=== PATIENT | male | born 1985 | race African-American/Black ===

== ENCOUNTER 2016-09-29 14:01 | Emergency (ER) | payer SELFPAY ==
[~2016-09-29] VITALS: Ht 177.8 cm; Wt 78.6 kg
[~2016-09-29 14:01] MED LIST: ADAL1INJ SQ; CHLO.12%30 SSP; CLIN1CAP6 PO; IBUP800T23 PO
[2016-09-29 14:03] VITALS: BP 113/77; PULSE 68; RESP 17; TEMP 98.5; O2SAT 99
--- NOTE | 2016-09-29 14:24 | PD ---
HPI Chief Complaint: Pain: Acute or Chronic Time Seen by Provider: 14:00 Travel History International Travel<30 days: No Contact w/Intl Traveler<30days: No Traveled to known affect area: No History of Present Illness HPI 31-year-old male with chief complaint of nontraumatic left wrist pain. Symptom onset 1 day. Symptom severity mild. No alleviating factors Patient reports mild pain with range of motion and some mild paresthesias in the first and second digit. PFSH Past Medical History Medical History: Denies Significant Hx Hx Anticoagulant Therapy: No Autoimmune Disease: No Blood Disorders: No Cancer: No Cardiovascular Problems: No Chemotherapy: No Cerebrovascular Accident: No Diabetes: No Diminished Hearing: No Endocrine: No Gastrointestinal Disorders: Yes (STATES HISTORY OF CROHN'S) GERD: No Genitourinary: No Headaches: Yes Hepatitis: No Hiatal Hernia: No Immune Disorder: No Musculoskeletal: No Neurologic: Yes Psychiatric: No Reproductive: No Respiratory: No Migraines: Yes Radiation Therapy: No Seizures: No Sickle Cell Disease: No Ulcer: No Past Surgical History Abdominal Surgery: Yes (PARTIAL COLON AND PARTIAL SMALL BOWEL RESECTION AND COLONOSCOPY 11/09/06) AICD: No Appendectomy: No Arteriovenous Shunt: No Cardiac Surgery: No Cholecystectomy: No Ear Surgery: No Endocrine Surgery: No Eye Surgery: No Genitourinary Surgery: Yes (COLONOSCOPY, POLYP/HEMORRHOID REMOVAL 2006 +01/18 years ago colonoscopy) Gynecologic Surgery: No Insulin Pump: No Joint Replacement: No Oral Surgery: No Pacemaker: No Thoracic Surgery: No Other Surgery: Yes Social History Alcohol Use: No Tobacco Use: No Substance Use: No Allergies-Medications (Allergen,Severity, Reaction): Coded Allergies: No Known Allergies (Verified , 09/29/16) Reported Meds & Prescriptions Reported Meds & Active Scripts Active Ibuprofen 800 Mg Tab 800 Mg PO TID PRN Peridex Oral Rinse (Chlorhexidine Gluconate) 0.12 % Rita 15 Ml SSP BID 7 Days Clindamycin Hcl (Clindamycin HCl) 300 Mg Cap 300 Mg PO Q6HR 10 Days Reported Humira (Adalimumab) 10 Mg/0.2 Ml Inj 1 Injection SQ MONTHLY Review of Systems Except as stated in HPI: all other systems reviewed are Neg General / Constitutional: No: Fever Eyes: No: Visual changes HENT: No: Headaches Cardiovascular: No: Chest Pain or Discomfort Respiratory: No: Shortness of Breath Gastrointestinal: No: Abdominal Pain Genitourinary: No: Dysuria Skin: No Rash Neurologic: No: Weakness Physical Exam Narrative GENERAL: Well-nourished, well-developed patient. SKIN: Focused skin assessment warm/dry. HEAD: Normocephalic. EYES: No scleral icterus. No injection or drainage. NECK: Supple, trachea midline. No JVD or lymphadenopathy. CARDIOVASCULAR: Regular rate and rhythm without murmurs, gallops, or rubs. RESPIRATORY: Breath sounds equal bilaterally. No accessory muscle use. MUSCULOSKELETAL: No cyanosis, or edema. Left wrist: Patient reports pain in the region of the distal radius and thumb. No bony point tenderness. No deformity. Positive Chuck's. 2+ distal pulses. Data Data Last Documented VS Vital Signs Date Time Temp Pulse Resp B/P Pulse Ox O2 Delivery O2 Flow Rate FiO2 09/29/16 14:03 98.5 68 17 113/77 99 Room Air Orders Support Splint (09/29/16 14:25) Cockup Hand Splint (09/29/16 ) MDM Medical Decision Making Medical Screen Exam Complete: Yes Emergency Medical Condition: Yes Differential Diagnosis Carpal tunnel, tendinitis, strain Narrative Course 31-year-old male with chief complaint of nontraumatic left wrist pain. Patient reports mild pain with range of motion and some mild paresthesias in the first and second digit. Physical exam is reassuring and consistent with carpal tunnel. Patient will be given a cock-up splint instructed to take over-the- counter Motrin ice and elevate the extremity and follow up with his primary care. Patient verbalizes understanding and agrees to plan. Diagnosis Primary Impression: Carpal tunnel syndrome of left wrist Referrals: Primary Care Physician Departure Forms: Tests/Procedures, Work Release Enter return to work date: Oct 01, 2016 Additional Instructions: Use a splint as instructed for one week. Take [id number] Motrin [id number] milligrams by mouth every 6-8 hours as needed for pain. Follow-up they're primary care doctor for recheck. Disposition: 01 DISCHARGE HOME Condition: Stable Sunita Beaver Jennifer OLSON Sep 29, 2016 14:24
== END 2016-09-29 15:09 | disposition home or self-care (01) ==
LOC: NEPK 14:01
DX: G56.02 Carpal tunnel syndrome, left upper limb (principal)
CPT/HCPCS: 99282; L3908

== ENCOUNTER 2016-11-15 21:42 | Inpatient (IN) | payer SELFPAY ==
[~2016-11-15] VITALS: Ht 177.8 cm; Wt 78.5 kg
[2016-11-15] MEDS ORDERED: IOHEXOL 350 MG/ML 10 ML VIAL (for RAD DIAG) IVCONTRAST ONE (21:43)
[2016-11-15 21:44] VITALS: BP 139/68; PULSE 98; RESP 16; TEMP 99.9; O2SAT 96
[2016-11-16] VITALS (9 sets, daily range): BP systolic 95–109; BP diastolic 52–67; PULSE 59–82; RESP 14–18; TEMP 97.8–98.1; O2SAT 97–100
[2016-11-16] MEDS ORDERED: SODIUM CHLOR 0.9% 1000 ML INJ 1,000 ML IV SCH (00:02)
[2016-11-16] MEDS ORDERED: MORPHINE SULFATE 4 MG/ML INJ IV PUSH ONE ×2 (00:15→02:15)
[2016-11-16] MEDS ORDERED: ONDANSETRON HCL 4 MG/2 ML VIAL IVP ONE (00:15)
[2016-11-16] MEDS ORDERED: SODIUM CHLORIDE 0.9% FLUSH 10 ML FLUSH IV FLUSH PRN (00:15)
--- NOTE | 2016-11-16 00:17 | PD ---
HPI Chief Complaint: Abdominal Pain Time Seen by Provider: 23:30 Travel History International Travel<30 days: No Contact w/Intl Traveler<30days: No Traveled to known affect area: No History of Present Illness HPI 31yo M with PMH of crohns disease here with periumbilical abdominal pain since 10am today. Pain is constant, associated with nausea, nonbloody vomiting and nonbloody diarrhea. States that he also started having generalized headache after vomiting and thinks it is migraine because the light makes it worst. Pt has been feeling hot and cold all day. No documented fever. Denies any urinary complaints, testicular pain, penile discharge or rash, focal weakness or numbness, chest pain, sob. Pt has not follow up with Dr. Ryder in a while. PFSH Past Medical History Hx Anticoagulant Therapy: No Autoimmune Disease: No Blood Disorders: No Cancer: No Cardiovascular Problems: No Chemotherapy: No Cerebrovascular Accident: No Diabetes: No Diminished Hearing: No Endocrine: No Gastrointestinal Disorders: Yes (STATES HISTORY OF CROHN'S) GERD: No Genitourinary: No Headaches: Yes Hepatitis: No Hiatal Hernia: No Immune Disorder: No Musculoskeletal: No Neurologic: Yes Psychiatric: No Reproductive: No Respiratory: No Immunizations Current: No Migraines: Yes Radiation Therapy: No Seizures: No Sickle Cell Disease: No Ulcer: No Tetanus Vaccination: < 5 Years Influenza Vaccination: No Past Surgical History Abdominal Surgery: Yes (PARTIAL COLON AND PARTIAL SMALL BOWEL RESECTION AND COLONOSCOPY 11/09/06) AICD: No Appendectomy: Yes Arteriovenous Shunt: No Cardiac Surgery: No Cholecystectomy: No Ear Surgery: No Endocrine Surgery: No Eye Surgery: No Genitourinary Surgery: Yes (COLONOSCOPY, POLYP/HEMORRHOID REMOVAL 2006 +01/18 years ago colonoscopy) Gynecologic Surgery: No Insulin Pump: No Joint Replacement: No Neurologic Surgery: No Oral Surgery: No Pacemaker: No Thoracic Surgery: No Other Surgery: Yes Social History Alcohol Use: No Tobacco Use: No Substance Use: No Allergies-Medications (Allergen,Severity, Reaction): Coded Allergies: No Known Allergies (Verified , 09/29/16) Reported Meds & Prescriptions Reported Meds & Active Scripts Active No Active Prescriptions or Reported Medications Review of Systems Except as stated in HPI: all other systems reviewed are Neg Physical Exam Narrative GENERAL: 31yo M in mild distress. SKIN: Focused skin assessment warm/dry. HEAD: Atraumatic. Normocephalic. EYES: Pupils equal and round at 3mm bilaterally. No scleral icterus. No injection or drainage. ENT: No nasal bleeding or discharge. Mucous membranes pink and moist. NECK: Trachea midline. No JVD. No nuchal rigidity. CARDIOVASCULAR: Regular rate and rhythm. No murmur appreciated. RESPIRATORY: No accessory muscle use. Clear to auscultation. Breath sounds equal bilaterally. GASTROINTESTINAL: Abdomen soft, non-tender, nondistended. No rebound tenderness or guarding. MUSCULOSKELETAL: No obvious deformities. No clubbing. No cyanosis. No edema. NEUROLOGICAL: Awake and alert. No obvious cranial nerve deficits. Motor grossly within normal limits. Normal speech. PSYCHIATRIC: Appropriate mood and affect; insight and judgment normal. Data Data Last Documented VS Vital Signs Date Time Temp Pulse Resp B/P (MAP) Pulse Ox O2 Delivery O2 Flow Rate FiO2 11/16/16 02:18 98 11/16/16 00:15 82 18 Room Air 11/15/16 21:44 99.9 Orders Orders Complete Blood Count With Diff (11/16/16 00:02) Comprehensive Metabolic Panel (11/16/16 00:02) Lipase (11/16/16 00:02) Prothrombin Time / Inr (Pt) (11/16/16 00:02) Act Partial Throm Time (Ptt) (11/16/16 00:02) Urinalysis - C+S If Indicated (11/16/16 00:02) Ct Abd/Pel W Iv Contrast(Rout) (11/16/16 00:02) Iv Access Insert/Monitor (11/16/16 00:02) Ecg Monitoring (11/16/16 00:02) Oximetry (11/16/16 00:02) Morphine Inj (Morphine Inj) (11/16/16 00:15) Ondansetron Inj (Zofran Inj) (11/16/16 00:15) Sodium Chlor 0.9% 1000 Ml Inj (Ns 1000 M (11/16/16 00:02) Sodium Chloride 0.9% Flush (Ns Flush) (11/16/16 00:15) Potassium Chloride (Kcl) (11/16/16 01:30) Iohexol 350 Inj (Omnipaque 350 Inj) (11/15/16 21:43) Morphine Inj (Morphine Inj) (11/16/16 02:15) Metoclopramide Inj (Reglan Inj) (11/16/16 02:15) Admit Order (Ed Use Only) (11/16/16 02:40) Place In Observation (11/16/16 ) Vital Signs (Adult) Q4H (11/16/16 02:39) Activity Oob With Assistance (11/16/16 02:39) Carousel Operator / Telemetry .CONTINUOUS (11/16/16 02:39) Diet Regular Basic (11/16/16 Breakfast) Sodium Chlor 0.9% 1000 Ml Inj (Ns 1000 M (11/16/16 02:39) Sodium Chloride 0.9% Flush (Ns Flush) (11/16/16 02:45) Sodium Chloride 0.9% Flush (Ns Flush) (11/16/16 09:00) Basic Metabolic Panel (Bmp) (11/17/16 06:00) Complete Blood Count With Diff (11/17/16 06:00) Naloxone Inj (Narcan Inj) (11/16/16 02:45) Labs Laboratory Tests Test 11/15/16 23:53 White Blood Count 6.2 TH/MM3 Red Blood Count 4.66 MIL/MM3 Hemoglobin 13.0 GM/DL Hematocrit 39.6 % Mean Corpuscular Volume 85.0 FL Mean Corpuscular Hemoglobin 28.0 PG Mean Corpuscular Hemoglobin Concent 32.9 % Red Cell Distribution Width 13.8 % Platelet Count 286 TH/MM3 Mean Platelet Volume 7.4 FL Neutrophils (%) (Auto) 72.9 % Lymphocytes (%) (Auto) 18.0 % Monocytes (%) (Auto) 8.5 % Eosinophils (%) (Auto) 0.1 % Basophils (%) (Auto) 0.5 % Neutrophils # (Auto) 4.5 TH/MM3 Lymphocytes # (Auto) 1.1 TH/MM3 Monocytes # (Auto) 0.5 TH/MM3 Eosinophils # (Auto) 0.0 TH/MM3 Basophils # (Auto) 0.0 TH/MM3 CBC Comment DIFF FINAL Differential Comment Prothrombin Time 11.4 SEC Prothromb Time International Ratio 1.0 RATIO Activated Partial Thromboplast Time 27.9 SEC Blood Urea Nitrogen 11 MG/DL Creatinine 1.32 MG/DL Random Glucose 106 MG/DL Total Protein 8.0 GM/DL Albumin 3.5 GM/DL Calcium Level 8.9 MG/DL Alkaline Phosphatase 58 U/L Aspartate Amino Transf (AST/SGOT) 22 U/L Alanine Aminotransferase (ALT/SGPT) 24 U/L Total Bilirubin 0.5 MG/DL Sodium Level 140 MEQ/L Potassium Level 3.3 MEQ/L Chloride Level 104 MEQ/L Carbon Dioxide Level 29.3 MEQ/L Anion Gap 7 MEQ/L Estimat Glomerular Filtration Rate 77 ML/MIN Lipase 173 U/L [facility] Medical Decision Making Medical Screen Exam Complete: Yes Emergency Medical Condition: Yes Differential Diagnosis Crohns flare vs. gastroenteritis vs. viral syndrome vs. migraine headache vs. partial obstruction Narrative Course 31yo M with PMH of Crohn's disease here with periumbilical abdominal pain, vomiting and diarrhea today. Labs reviewed, no leukocytosis. K: 3.3, replaced orally. Creatinine mildly elevated at 1.32. Lipase normal. CTa/p showed moderate severity short segment Crohn's involvement of the distal ileum near the ileocolic anastomosis associated with a luminal narrowing and dilatation of small bowel up to 3.9cm in the right lower quadrant. Findings are similar to Nov 2015 although small bowel is slightly more dilated on the current exam. No free fluid or free air. Pt is having bowel movement and no vomiting so I do not think he is having a complete bowel obstruction at this time. Pt reevaluated at bedside after morphine and zofran but is still in a lot of pain and still nauseous. Ordered another dose of morphine and added reglan. Will admit for observation and GI consult. Discussed with Dr. Quintero and accepted to her service. Diagnosis Primary Impression: Crohn disease Qualified Codes: K50.019 - Crohn's disease of small intestine with unspecified complications Admitting Information Admitting Physician Requests: Observation Scripts No Active Prescriptions or Reported Meds Lisbet Pisano DO Nov 16, 2016 00:17
[2016-11-16 00:32] LABS: AUTOMATED NEUTROPHIL # 4.5 TH/MM3 (1.8-7.7); BASOPHIL % 0.5 % (0.0-2.0); EOSINOPHIL % 0.1 % (0.0-4.0); HEMATOCRIT 39.6 % (39.0-51.0); HEMO FLAGS DIFF FINAL; LYMPHOCYTE # 1.1 TH/MM3 (1.0-4.8); MEAN CORPUSCULAR HGB CONC 32.9 % (32.0-36.0); MONO % 8.5 % (0.0-8.0); NEUT % 72.9 % (16.0-70.0); PLATELET COUNT 286 TH/MM3 (150-450); RED BLOOD COUNT 4.66 MIL/MM3 (4.50-5.90); RED CELL DISTRIBUTION WIDTH 13.8 % (11.6-17.2); WHITE BLOOD COUNT 6.2 TH/MM3 (4.0-11.0)
[2016-11-16 00:38] LABS: APTT (PATIENT) 27.9 SEC (24.3-30.1); PROTHROMBIN TIME - PATIENT 11.4 SEC (9.8-11.6)
[2016-11-16 00:48] LABS: ANION GAP 7 MEQ/L (5-15); AST (GOT) 22 U/L (15-37); BICARBONATE 29.3 MEQ/L (21.0-32.0); BLOOD UREA NITROGEN 11 MG/DL (7-18); CHLORIDE 104 MEQ/L (98-107); GLOMERULAR FILTRATION RATE 77 ML/MIN (>89); POTASSIUM 3.3 MEQ/L (3.5-5.1); SODIUM (NA) 140 MEQ/L (136-145)
[2016-11-16 00:51] LABS: ALKALINE PHOSPHATASE 58 U/L (45-117); ALT (GPT) 24 U/L (12-78); TOTAL BILIRUBIN ADULT 0.5 MG/DL (0.2-1.0)
[2016-11-16] MEDS ORDERED: POTASSIUM CHLORIDE 20 MEQ CONTROLLED RELEASE TAB PO ONE (01:30)
--- NOTE | 2016-11-16 01:54 | RADRPT ---
EXAM DATE/TIME: 11/16/2016 01:27 [facility] COMPARISON: CT ABDOMEN & PELVIS W CONTRAST, December 05, 2015, 20:23. INDICATIONS : Diffuse abdominal pain with nausea and vomiting. IV CONTRAST: 100 cc Omnipaque 350 (iohexol) IV ORAL CONTRAST: No oral contrast ingested. RADIATION DOSE: 6.96 CTDIvol (mGy) MEDICAL HISTORY : Crohn's disease. SURGICAL HISTORY : Appendectomy. Colon resection. Small bowel removal ENCOUNTER: Initial ACUITY: 1 day PAIN SCALE: 7/10 LOCATION: All quadrants. TECHNIQUE: Volumetric scanning of the abdomen and pelvis was performed. Using automated exposure control and ad justment of the mA and/or kV according to patient size, radiation dose was kept as low as reasonably achievable to obtain optimal diagnostic quality images. DICOM format image data is available electro nically for review and comparison. FINDINGS: Comparison is November 2015. Again seen are inflammatory changes in the fat near the ileocolic anast omosis. There is previous bowel resection in the right lower quadrant. There's also short segment elizabeth nosis at the anastomosis with small bowel dilated to about 3.9 cm in the right lower quadrant. There is no free fluid or free air. Lung bases are clear. No acute findings in the liver, spleen, adrenals, kidneys or pancreas. No calcified gallstones or ilan iary ductal dilatation. No acute bony abnormalities. CONCLUSION: 1. Moderate severity short segment Crohn's involvement of the distal ileum near the ileocolic anastom osis associated with a luminal narrowing and dilatation of small bowel up to 3.9 cm in the right lowe r quadrant. Findings are similar to November 2015 although small bowel is slightly more dilated on t he current exam. No free fluid or free air. Law Bloom MD on November 16, 2016 at 1:44 Board Certified Radiologist. This report was verified electronically.
[2016-11-16] MEDS ORDERED: METOCLOPRAMIDE INJ 10 MG in SODIUM CHLORIDE 0.9% INJ 50 ML IV ONE (02:15)
[2016-11-16] MEDS ORDERED: NALOXONE HCL 0.4 MG/ML AMP IV PRN (02:45)
[2016-11-16] MEDS: SODIUM CHLOR 0.9% 1000 ML INJ 1,000 ML IV SCH ×3 (03:51→22:39)
--- NOTE | 2016-11-16 05:02 | HHI.HP ---
[facility]ician No Primary Care Physician Admission Diagnosis Crohns exacerbation Diagnoses: Travel History International Travel<30 Days: No Contact w/Intl Traveler <30 Da: No Traveled to Known Affected Are: No History of Present Illness abdominal pain, mid abodmen, nausea, vomtiing fever chills diarrhea no measurement no black or no red stool no blood in urine no coughing no sob no headaches Review of Systems Except as stated in HPI: all other systems reviewed are Neg Past Family Social History Past Medical History crohns ulcerative colitis 2006 diagnosed small part of intestine taken out fistula formation bowel obstructions with the disease Past Surgical History small part of intestine taken out Reported Medications no smoking/ no etoh/ no drugs Allergies: Coded Allergies: No Known Allergies (Verified , 09/29/16) Family History none Social History denies smoking/ etoh abuse/ drug abuse Physical Exam Vital Signs Vital Signs Date Time Temp Pulse Resp B/P (MAP) Pulse Ox O2 Delivery O2 Flow Rate FiO2 11/16/16 03:39 98.0 70 18 109/67 (81) 98 11/16/16 02:18 98 11/16/16 00:15 82 18 106/57 (73) 97 Room Air 11/15/16 21:44 99.9 98 16 139/68 (91) 96 Room Air Physical Exam GENERAL: This is a well-nourished, well-developed patient, in no apparent distress. SKIN: No rashes, ecchymoses or lesions. Cool and dry. HEAD: Atraumatic. Normocephalic. No temporal or scalp tenderness. EYES: . No scleral icterus. No injection or drainage. ENT: Nose without bleeding, purulent drainage or septal hematoma. Airway patent. NECK: Trachea midline. No JVD or lymphadenopathy. Supple, nontender, no meningeal signs. CARDIOVASCULAR: Regular rate and rhythm without murmurs, gallops, or rubs. RESPIRATORY: Clear to auscultation. Breath sounds equal bilaterally. No wheezes , rales, or rhonchi. GASTROINTESTINAL: Abdomen soft, tenderness diffusely, nondistended. . No guarding. MUSCULOSKELETAL: Extremities without clubbing, cyanosis, or edema. . No calf tenderness. NEUROLOGICAL: Awake and alert. Motor and sensory grossly within normal limits. Normal speech. Laboratory Laboratory Tests Test 11/15/16 23:53 White Blood Count 6.2 Red Blood Count 4.66 Hemoglobin 13.0 Hematocrit 39.6 Mean Corpuscular Volume 85.0 Mean Corpuscular Hemoglobin 28.0 Mean Corpuscular Hemoglobin Concent 32.9 Red Cell Distribution Width 13.8 Platelet Count 286 Mean Platelet Volume 7.4 Neutrophils (%) (Auto) 72.9 Lymphocytes (%) (Auto) 18.0 Monocytes (%) (Auto) 8.5 Eosinophils (%) (Auto) 0.1 Basophils (%) (Auto) 0.5 Neutrophils # (Auto) 4.5 Lymphocytes # (Auto) 1.1 Monocytes # (Auto) 0.5 Eosinophils # (Auto) 0.0 Basophils # (Auto) 0.0 CBC Comment DIFF FINAL Differential Comment Prothrombin Time 11.4 Prothromb Time International Ratio 1.0 Activated Partial Thromboplast Time 27.9 Blood Urea Nitrogen 11 Creatinine 1.32 Random Glucose 106 Total Protein 8.0 Albumin 3.5 Calcium Level 8.9 Alkaline Phosphatase 58 Aspartate Amino Transf (AST/SGOT) 22 Alanine Aminotransferase (ALT/SGPT) 24 Total Bilirubin 0.5 Sodium Level 140 Potassium Level 3.3 Chloride Level 104 Carbon Dioxide Level 29.3 Anion Gap 7 Estimat Glomerular Filtration Rate 77 Lipase 173 Result Diagram: 11/15/16 2353 11/15/16 2353 Imaging Last 48 hours Impressions Abdomen/Pelvis CT 11/16/16 0002 Signed Impressions: Service Date/Time: October 01:27 - CONCLUSION: 1. Moderate severity short segment Crohn's involvement of the distal ileum near the ileocolic anastomosis associated with a luminal narrowing and dilatation of small bowel up to 3.9 cm in the right lower quadrant. Findings are similar to November 2015 although small bowel is slightly more dilated on the current exam. No free fluid or free air. Law Bloom MD Caprini VTE Risk Assessment Caprini VTE Risk Assessment: Mod/High Risk (score >= 2) Caprini Risk Assessment Model Point Value = 1 Point Value = 2 Point Value = 3 Point Value = 5 Age 41-60 Minor surgery BMI > 25 kg/m2 Swollen legs Varicose veins or History of unexplained or recurrent spontaneous Oral contraceptives or hormone replacement Sepsis (< 1 month) Serious lung disease, including pneumonia (< 1 month) Abnormal pulmonary function Acute myocardial infarction Congestive heart failure (< 1 month) History of inflammatory bowel disease Medical patient at bed rest Age 61-74 Arthroscopic surgery Major open surgery (> 45 min) Laparoscopic surgery (> 45 min) Malignancy Confined to bed (> 72 hours) Immobilizing plaster cast Central venous access Age >= 75 History of VTE Family history of VTE Factor V Leiden Prothrombin [id number] Lupus anticoagulant Anticardiolipin antibodies Elevated serum homocysteine Heparin-induced thrombocytopenia Other congenital or acquired thrombophilia Stroke (< 1 month) Elective arthroplasty Hip, pelvis, or leg fracture Acute spinal cord injury (< 1 month) Prophylaxis Regimen Total Risk Factor Score Risk Level Prophylaxis Regimen 0-1 Low Early ambulation 2 Moderate Order ONE of the following: *Sequential Compression Device (SCD) *Heparin 5000 units SQ BID 3-4 Higher Order ONE of the following medications: *Heparin 5000 units SQ TID *Enoxaparin/Lovenox 40 mg SQ daily (WT < 150 kg, CrCl > 30 mL/min) *Enoxaparin/Lovenox 30 mg SQ daily (WT < 150 kg, CrCl > 10-29 mL/min) *Enoxaparin/Lovenox 30 mg SQ BID (WT < 150 kg, CrCl > 30 mL/min) AND/OR *Sequential Compression Device (SCD) 5 or more Highest Order ONE of the following medications: *Heparin 5000 units SQ TID (Preferred with Epidurals) *Enoxaparin/Lovenox 40 mg SQ daily (WT < 150 kg, CrCl > 30 mL/min) *Enoxaparin/Lovenox 30 mg SQ daily (WT < 150 kg, CrCl > 10-29 mL/min) *Enoxaparin/Lovenox 30 mg SQ BID (WT < 150 kg, CrCl > 30 mL/min) AND *Sequential Compression Device (SCD) Assessment and Plan Assessment and Plan Impression: Crohn's exacerbation hx of crohns dx and ulcerative colitis per patient with fistula formation, partial bowel resections previously Plan: CT abdomen and plevis personally reviewed- no evidence of free air, obstruction or fistula formation solumedrol 40mg iv q6hrs ppi during steroid use cipro 400mg iv q12hrs flagyl 500mg iv q6hrs gi consult resume home meds dvt prophylaxis with scd gi prophylaxis on pantoprazole Discussed Condition With patient, er provider, nursing staff Caden Quintero MD Nov 16, 2016 05:02
[2016-11-16] MEDS: metroNIDAZOLE 500 MG INJ 100 ML IV SCH ×4 (06:41→23:16)
[2016-11-16] MEDS: methylPREDNISolone SOD SUCC 40 MG/1 ML VIAL IV PUSH SCH ×4 (06:41→23:16)
[2016-11-16] MEDS: CIPROFLOXACIN 400 MG PREMIX 200 ML IV SCH ×2 (07:56→18:23)
--- NOTE | 2016-11-16 08:13 | PD.CONS ---
HPI History of Present Illness This is a 31 year old male with a history of Crohn's disease. He was diagnosed 10 years ago, when he had a bowel obstruction and he was diagnosed with Crohn's by pathology. He also has a history of fistulas. He has been on various medications in the past, including Remicade, Pentasa, Azathioprine, and Humira, but lost his insurance and has not been on any medications for the past year. He typically has 3 loose stools per day with no blood and mucous. He reports that he typically has a flare once a year. He started having some mild abdominal cramping about a week ago. This has progressively worsened over the past week and he reports that he woke up yesterday with severe left lower quadrant pain. He has been having intermittent fevers for a few days. He denies nausea, vomiting. He is still having 3 loose stools per day, but denies any blood or mucous. He has lost about 5 lbs over the past week. He denies any recent travel, suspicious food, sick contacts, or recent antibiotics use. His last EGD/Colonoscopy (02/18/15)----> there was erythematous gastritis in the gastric antrum; biopsy was performed, retroflexed views revealed no abnormalities. Multiple non-bleeding ulcers, ranging between 3-5 mm in size, were found in the distal ileum; biopsies were taken. The colonic mucosa appeared normal throughout the entire examined colon; multiple random biopsies of the area were performed, retroflexed views revealed small internal hemorrhoids, revealed external hemorrhoids. Pathology mildly active chronic antral gastritis, no helicobacter pylori-like organisms are present, cecum with moderately to severely active chronic colitis, small bowel terminal ileum with severely active chronic inflammation with features of ulceration, colonic mucosa in sigmoid mucosa without significant histologic abnormality. (Doreen Woodard) PFSH Past Medical History Crohn's Disease, dx 2006 Hx fistula Hx bowel obstructions Hx H. Pylori gastritis Past Surgical History Small bowel resection EGD/Colonoscopy (Doreen Woodard) Coded Allergies: No Known Allergies (Verified , 09/29/16) Medications Allergies Coded Allergies Type Severity Reaction Last Updated Verified No Known Allergies 09/29/16 Yes Active Scripts Medications Dose Route/Sig Max Daily Dose Days Date Category No Active Prescriptions or Reported Medications Rx Family History Noncontributory Social History No tobacco, etoh, illicit drug use. (Doreen Woodard WESLEY) Review of Systems Constitutional: COMPLAINS OF: Fatigue, Fever, Weight loss, Chills Respiratory: DENIES: Cough Cardiovascular: DENIES: Chest pain Gastrointestinal: COMPLAINS OF: Abdominal pain, Diarrhea, DENIES: Black stools , Bloody stools, Constipation, Nausea, Vomiting, Heartburn, Hematemesis Musculoskeletal: DENIES: Joint pain Integumentary: DENIES: Abnormal pigmentation Hematologic/lymphatic: DENIES: Bruising Neurologic: DENIES: Headache Psychiatric: DENIES: Confusion (Doreen Woodard WESLYE) GI Exam Vitals I&O Vital Signs Date Time Temp Pulse Resp B/P (MAP) Pulse Ox O2 Delivery O2 Flow Rate FiO2 11/16/16 08:02 98.1 62 14 103/52 (69) 97 11/16/16 03:39 98.0 70 18 109/67 (81) 98 11/16/16 02:18 98 11/16/16 00:15 82 18 106/57 (73) 97 Room Air 11/15/16 21:44 99.9 98 16 139/68 (91) 96 Room Air I/O 11/15/16 11/15/16 11/15/16 11/16/16 11/16/16 11/16/16 06:59 14:59 22:59 06:59 14:59 22:59 Intake Total 1000 ml Balance 1000 ml Intake IV Total 1000 ml Imaging Last Impressions Abdomen/Pelvis CT 11/16/16 0002 Signed Impressions: Service Date/Time: October 01:27 - CONCLUSION: 1. Moderate severity short segment Crohn's involvement of the distal ileum near the ileocolic anastomosis associated with a luminal narrowing and dilatation of small bowel up to 3.9 cm in the right lower quadrant. Findings are similar to November 2015 although small bowel is slightly more dilated on the current exam. No free fluid or free air. Law Bloom MD Laboratory Test 11/15/16 23:53 White Blood Count 6.2 TH/MM3 Red Blood Count 4.66 MIL/MM3 Hemoglobin 13.0 GM/DL Hematocrit 39.6 % Mean Corpuscular Volume 85.0 FL Mean Corpuscular Hemoglobin 28.0 PG Mean Corpuscular Hemoglobin Concent 32.9 % Red Cell Distribution Width 13.8 % Platelet Count 286 TH/MM3 Mean Platelet Volume 7.4 FL Neutrophils (%) (Auto) 72.9 % Lymphocytes (%) (Auto) 18.0 % Monocytes (%) (Auto) 8.5 % Eosinophils (%) (Auto) 0.1 % Basophils (%) (Auto) 0.5 % Neutrophils # (Auto) 4.5 TH/MM3 Lymphocytes # (Auto) 1.1 TH/MM3 Monocytes # (Auto) 0.5 TH/MM3 Eosinophils # (Auto) 0.0 TH/MM3 Basophils # (Auto) 0.0 TH/MM3 CBC Comment DIFF FINAL Differential Comment Prothrombin Time 11.4 SEC Prothromb Time International Ratio 1.0 RATIO Activated Partial Thromboplast Time 27.9 SEC Blood Urea Nitrogen 11 MG/DL Creatinine 1.32 MG/DL Random Glucose 106 MG/DL Total Protein 8.0 GM/DL Albumin 3.5 GM/DL Calcium Level 8.9 MG/DL Alkaline Phosphatase 58 U/L Aspartate Amino Transf (AST/SGOT) 22 U/L Alanine Aminotransferase (ALT/SGPT) 24 U/L Total Bilirubin 0.5 MG/DL Sodium Level 140 MEQ/L Potassium Level 3.3 MEQ/L Chloride Level 104 MEQ/L Carbon Dioxide Level 29.3 MEQ/L Anion Gap 7 MEQ/L Estimat Glomerular Filtration Rate 77 ML/MIN Lipase 173 U/L Physical Examination HEENT: Normocephalic; atraumatic; no jaundice. Throat is clear. NECK: Neck is supple, no JVD, no lymphadenopathy. CHEST: Chest is clear to auscultation and percussion. CARDIAC: Regular rate and rhythm with no murmur gallop or rubs. ABDOMEN: Soft, nondistended, mild left sided tenderness; no hepatosplenomegaly ; bowel sounds are present in all four quadrants. EXTREMITIES: No clubbing, cyanosis, or edema. SKIN: Normal; no rash; no jaundice. MARKETING PROGRAM COORDINATOR: No focal deficits; alert and oriented times three. (Doreen Woodard) Assessment and Plan Plan ASSESSMENT: - Crohn's exacerbation. Abdomen/Pelvis (11/16/16)-----> Moderate severity short segment Crohn's involvement of the distal ileum near the ileocolic anastomosis associated with a luminal narrowing and dilatation of small bowel up to 3.9 cm in the right lower quadrant. Findings are similar to November 2015 although small bowel is slightly more dilated on the current exam. Dx 10 years ago, has been on Remicade, Pentasa, Azathioprine, and Humira in the past, but lost his insurance and has not been on any medications for the past year. EGD/Colonoscopy (02/18/15)----> there was erythematous gastritis in the gastric antrum; biopsy was performed, retroflexed views revealed no abnormalities. Multiple non-bleeding ulcers, ranging between 3-5 mm in size, were found in the distal ileum; biopsies were taken. The colonic mucosa appeared normal throughout the entire examined colon; multiple random biopsies of the area were performed, retroflexed views revealed small internal hemorrhoids, revealed external hemorrhoids. Pathology mildly active chronic antral gastritis, no helicobacter pylori-like organisms are present, cecum with moderately to severely active chronic colitis, small bowel terminal ileum with severely active chronic inflammation with features of ulceration, colonic mucosa in sigmoid mucosa without significant histologic abnormality. Add Solumedrol, get CRP, Sed rate, plan for egd/colonoscopy in am. On cipro/flagyl - Fever. WBC 6.2. Cipro/Flagyl. - JOÃO, Creat. 1.32. PLAN: - Plan for egd/colonoscopy in am - Obtain consent - Clear liquids - NPO after MN - Golytely prep - Cont. Steroids - Cont. Cipro/Flagyl - Stool studies - Monitor labs - Sed rate, CRP - Supportive care - Further recommendations to follow based on results of above - Pt seen and examined by Dr. Campbell and myself and this note is written on his behalf (Doreen Woodard) Physician Comments Seen and examined, plan as above. Risk, benefits and possible complications discussed with the patient, will proceed with EGD and Colonoscopy in AM. (Maria L Campbell MD) Doreen Woodard Nov 16, 2016 08:13 Maria L Campbell MD Nov 16, 2016 10:23
[2016-11-16] MEDS: SODIUM CHLORIDE 0.9% FLUSH 10 ML FLUSH IV FLUSH SCH ×2 (09:00→20:53)
[2016-11-16] MEDS: PANTOPRAZOLE SOD 40 MG DELAYED RELEASE TAB PO SCH (10:52)
[2016-11-16] MEDS ORDERED: NYSTATIN SUSP 500,000 U/5 ML CUP SWISH-SWAL SCH (13:00)
--- NOTE | 2016-11-16 15:09 | HHI.PR ---
Subjective Remarks Follow-up for Crohn's exacerbation. The patient continues on left lower quadrant pain. As the pain is better than it was yesterday. He's been tolerating clear liquids with no nausea or vomiting. Last BM was yesterday and was normal. Going for EGD and colonoscopy tomorrow. Patient denies any acute concerns. Objective Vitals Vital Signs Date Time Temp Pulse Resp B/P (MAP) Pulse Ox O2 Delivery O2 Flow Rate FiO2 11/16/16 11:30 97.9 64 14 106/53 (70) 98 11/16/16 08:02 98.1 62 14 103/52 (69) 97 11/16/16 03:39 98.0 70 18 109/67 (81) 98 11/16/16 02:18 98 11/16/16 00:15 82 18 106/57 (73) 97 Room Air 11/15/16 21:44 99.9 98 16 139/68 (91) 96 Room Air I/O 11/15/16 11/15/16 11/15/16 11/16/16 11/16/16 11/16/16 07:00 15:00 23:00 07:00 15:00 23:00 Intake Total 1000 ml Balance 1000 ml Intake IV Total 1000 ml Result Diagram: 11/15/16 2353 11/15/16 2353 Imaging Last Impressions Abdomen/Pelvis CT 11/16/16 0002 Signed Impressions: Service Date/Time: October 01:27 - CONCLUSION: 1. Moderate severity short segment Crohn's involvement of the distal ileum near the ileocolic anastomosis associated with a luminal narrowing and dilatation of small bowel up to 3.9 cm in the right lower quadrant. Findings are similar to November 2015 although small bowel is slightly more dilated on the current exam. No free fluid or free air. Law Bloom MD Objective Remarks GENERAL: Well-developed well-nourished. In no acute distress. SKIN: Warm and dry. No lesions noted. HEENT: Normocephalic. Pupils equal and round. Mucous membranes pink and moist. CARDIOVASCULAR: Regular rate and rhythm. No murmur appreciated. RESPIRATORY: No accessory muscle use. Clear to auscultation. Breath sounds equal bilaterally. GASTROINTESTINAL: Abdomen soft, nondistended. Mild left lower quadrant TTP. Hypoactive bowel sounds. MUSCULOSKELETAL: No obvious deformities. No clubbing or cyanosis. No edema. NEUROLOGICAL: Awake and alert. No focal neurological deficits. Moves upper and lower extremities spontaneously. Normal speech. PSYCHIATRIC: Appropriate mood and affect; insight and judgment normal. A/P Assessment and Plan 31-year-old male with a past medical history of Crohn's disease and altered colitis who presented for abdominal pain Acute exacerbation of Crohn's disease: Reviewed: Abdominal CT shows minor severity short segment Crohn's involvement of the distal ileum near the heel of the colon anastomosis associated with a luminal narrowing and dilation of small bowel in the right lower quadrant; small bowel slightly more dilated compared to previous imaging. Tmax 99.9, no further fevers. No leukocytosis. ESR and CRP mildly elevated. -GI consulted, appreciate input, planning for EGD and colonoscopy tomorrow -Continue IV steroids -Continue IV Cipro and Flagyl -Continue PPI -IVF Hypokalemia: Potassium 3.3. Replaced orally. -Follow up BMP and check magnesium Dehydration/JOÃO: Creatinine 1.32, previously 1.25 on 12/05/15. -IVF and follow-up BMP DVT prophylaxis: Low risk Discharge Planning Continue inpatient treatment of Crohn's exacerbation with IV steroids. Follow- up GI recommendations after endoscopy. Juancho Lund Nov 16, 2016 15:09
[2016-11-16] MEDS ORDERED: PEG (High)/E-LYTE SOLN 4000 ML BTL PO ONE (16:00)
[2016-11-16] MEDS: SODIUM CHLORIDE 0.9% FLUSH 10 ML FLUSH IV FLUSH PRN (23:16)
[2016-11-17] VITALS: PULSE 66
[2016-11-17 00:35] VITALS: BP 126/90; PULSE 71; RESP 18; TEMP 97.5; O2SAT 100
[2016-11-17 04:00] VITALS: PULSE 54
[2016-11-17] MEDS: metroNIDAZOLE 500 MG INJ 100 ML IV SCH ×2 (04:49→11:04)
[2016-11-17 05:17] VITALS: BP 101/67; PULSE 57; RESP 18; TEMP 97.9; O2SAT 98
[2016-11-17] MEDS: SODIUM CHLORIDE 0.9% FLUSH 10 ML FLUSH IV FLUSH PRN (05:58)
[2016-11-17] MEDS: methylPREDNISolone SOD SUCC 40 MG/1 ML VIAL IV PUSH SCH (05:58)
[2016-11-17] MEDS: CIPROFLOXACIN 400 MG PREMIX 200 ML IV SCH (05:58)
[2016-11-17 06:06] LABS: C. DIFF EPI 027 PRESUMPTIVE NEGATIVE (NEGATIVE)
[2016-11-17 09:03] LABS: AUTOMATED NEUTROPHIL # 9.3 TH/MM3 (1.8-7.7); HEMATOCRIT 37.6 % (39.0-51.0); HEMO FLAGS DIFF FINAL; LYMPH % 4.7 % (9.0-44.0); LYMPHOCYTE # 0.5 TH/MM3 (1.0-4.8); MEAN CORPUSCULAR HEMOGLOBIN 27.7 PG (27.0-34.0); MEAN CORPUSCULAR HGB CONC 32.6 % (32.0-36.0); MONO % 2.9 % (0.0-8.0); NEUT % 92.4 % (16.0-70.0); PLATELET COUNT 288 TH/MM3 (150-450); RED BLOOD COUNT 4.42 MIL/MM3 (4.50-5.90); RED CELL DISTRIBUTION WIDTH 14.1 % (11.6-17.2); WHITE BLOOD COUNT 10.1 TH/MM3 (4.0-11.0)
[2016-11-17 09:25] LABS: BICARBONATE 27.4 MEQ/L (21.0-32.0); MAGNESIUM 2.1 MG/DL (1.5-2.5); POTASSIUM 3.5 MEQ/L (3.5-5.1)
[2016-11-17] MEDS ORDERED: PROPOFOL 200 MG/20 ML AMP IV PUSH ONE (09:47)
--- NOTE | 2016-11-17 10:22 | HHI.GIFU ---
Subjective Remarks Immediate postop note: EGD with biopsy and colonoscopy with biopsy, with balloon dilatation. Sedation: MAC Findings: Esophagus normal. Stomach: mild gastritis. Two biopsies taken. Duodenum: normal Surgical anatomosis inflamed and ulcerated with stricture. Scope would not pass. dilated to 15.5 mm with TTS balloon and scope would then pass through. Small intestine otherwise sukhjinder. Biopsy taken from the anastomosis. Rest of the colon was normal. No apparent complication. Objective Vitals I&O Vital Signs Date Time Temp Pulse Resp B/P (MAP) Pulse Ox O2 Delivery O2 Flow Rate FiO2 11/17/16 09:55 98.0 82 18 130/75 (93) 94 11/17/16 05:17 97.9 57 18 101/67 (78) 98 11/17/16 04:00 54 11/17/16 00:35 97.5 71 18 126/90 (102) 100 11/17/16 00:00 66 11/16/16 21:55 97.9 60 18 109/67 (81) 100 11/16/16 20:01 60 11/16/16 15:25 97.8 60 14 95/53 (67) 98 11/16/16 11:30 97.9 64 14 106/53 (70) 98 I/O 11/16/16 11/16/16 11/16/16 11/17/16 11/17/16 11/17/16 06:59 14:59 22:59 06:59 14:59 22:59 Intake Total 1000 ml 700 ml Output Total 600 ml Balance 1000 ml -600 ml 700 ml Intake IV Total 1000 ml Other 700 ml Output Urine Total 600 ml Laboratory Laboratory Tests Test 11/16/16 12:47 11/17/16 07:45 11/17/16 09:55 Erythrocyte Sedimentation Rate 17 C-Reactive Protein 1.40 White Blood Count 10.1 Red Blood Count 4.42 Hemoglobin 12.3 Hematocrit 37.6 Mean Corpuscular Volume 85.0 Mean Corpuscular Hemoglobin 27.7 Mean Corpuscular Hemoglobin Concent 32.6 Red Cell Distribution Width 14.1 Platelet Count 288 Mean Platelet Volume 7.4 Neutrophils (%) (Auto) 92.4 Lymphocytes (%) (Auto) 4.7 Monocytes (%) (Auto) 2.9 Eosinophils (%) (Auto) 0.0 Basophils (%) (Auto) 0.0 Neutrophils # (Auto) 9.3 Lymphocytes # (Auto) 0.5 Monocytes # (Auto) 0.3 Eosinophils # (Auto) 0.0 Basophils # (Auto) 0.0 CBC Comment DIFF FINAL Differential Comment Blood Urea Nitrogen 11 Creatinine 1.01 Random Glucose 138 Calcium Level 8.6 Magnesium Level 2.1 Sodium Level 141 Potassium Level 3.5 Chloride Level 105 Carbon Dioxide Level 27.4 Anion Gap 9 Estimat Glomerular Filtration Rate 104 Stool C. difficile Toxin (PCR) NEGATIVE Stl C. difficile Toxin Epiderm 027 PRESUMPTIVE NEGATIVE Date/Time Source Procedure Growth Status 11/17/16 00:00 Stool Stool Cryptosporidium Exam Pending Received 11/17/16 00:00 Stool Stool Stool Pus (JAZMÍN) Pending Received 11/17/16 00:00 Stool Stool Giardia Antigen (JAZMÍN) Pending Received Physical Exam HEENT: Pupils round and reactive to light; normocephalic; atraumatic; no jaundice. Throat is clear. NECK: Neck is supple, no JVD, no lymphadenopathy. CHEST: Chest is clear to auscultation and percussion. CARDIAC: Regular rate and rhythm with no murmur gallop or rubs. ABDOMEN: Soft, nondistended, nontender; no hepatosplenomegaly; bowel sounds are present in all four quadrants. EXTREMITIES: No clubbing, cyanosis, or edema. SKIN: Normal; no rash; no jaundice. VENDING MACHINE REFILLER: No focal deficits; alert and oriented times three. Assessment and Plan Plan ASSESSMENT: - Crohn's exacerbation. Abdomen/Pelvis (11/16/16)-----> Moderate severity short segment Crohn's involvement of the distal ileum near the ileocolic anastomosis associated with a luminal narrowing and dilatation of small bowel up to 3.9 cm in the right lower quadrant. Findings are similar to November 2015 although small bowel is slightly more dilated on the current exam. Dx 10 years ago, has been on Remicade, Pentasa, Azathioprine, and Humira in the past, but lost his insurance and has not been on any medications for the past year. EGD/Colonoscopy (02/18/15)----> there was erythematous gastritis in the gastric antrum; biopsy was performed, retroflexed views revealed no abnormalities. Multiple non-bleeding ulcers, ranging between 3-5 mm in size, were found in the distal ileum; biopsies were taken. The colonic mucosa appeared normal throughout the entire examined colon; multiple random biopsies of the area were performed, retroflexed views revealed small internal hemorrhoids, revealed external hemorrhoids. Pathology mildly active chronic antral gastritis, no helicobacter pylori-like organisms are present, cecum with moderately to severely active chronic colitis, small bowel terminal ileum with severely active chronic inflammation with features of ulceration, colonic mucosa in sigmoid mucosa without significant histologic abnormality. Add Solumedrol, get CRP, Sed rate, plan for egd/colonoscopy in am. On cipro/flagyl - Fever. WBC 6.2. Cipro/Flagyl. - JOÃO, Creat. 1.32. EGD and colonoscopy on 11/17. Results above. He had stricture and inflammation at the anastomosis. May benefit from surgery on that limited area. I dilated the stricture to 15.5mm. He is on steroids. If he is better he can eat. PLAN: - Cont. Steroids - Cont. Cipro/Flagyl - Stool studies - Monitor labs - Sed rate, CRP - Supportive care - Consider discharge to home if he is well enough. - Followup in office in 2 weeks. 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 Cesar Nelson MD Nov 17, 2016 10:22
[2016-11-17 10:36] VITALS: BP 110/75; PULSE 78; RESP 16; TEMP 98.6; O2SAT 98
[2016-11-17] MEDS: PANTOPRAZOLE SOD 40 MG DELAYED RELEASE TAB PO SCH (11:04)
[2016-11-17] MEDS: SODIUM CHLOR 0.9% 1000 ML INJ 1,000 ML IV SCH (11:04)
[2016-11-17] MEDS: SODIUM CHLORIDE 0.9% FLUSH 10 ML FLUSH IV FLUSH SCH (11:04)
--- NOTE | 2016-11-17 11:35 | HHI.PR ---
Subjective Remarks Follow-up for abdominal pain and Crohn's exacerbation. This patient is seen after EGD and colonoscopy today. The patient continues to have mild left lower quadrant pain, but states it is significantly improved since admission. He has been tolerating diet so far with no nausea or worsening pain. The patient feels well and is hoping to go home later today. Objective Vitals Vital Signs Date Time Temp Pulse Resp B/P (MAP) Pulse Ox O2 Delivery O2 Flow Rate FiO2 11/17/16 10:36 98.6 78 16 110/75 (87) 98 11/17/16 09:55 98.0 82 18 130/75 (93) 94 11/17/16 05:17 97.9 57 18 101/67 (78) 98 11/17/16 04:00 54 11/17/16 00:35 97.5 71 18 126/90 (102) 100 11/17/16 00:00 66 11/16/16 21:55 97.9 60 18 109/67 (81) 100 11/16/16 20:01 60 11/16/16 15:25 97.8 60 14 95/53 (67) 98 I/O 11/16/16 11/16/16 11/16/16 11/17/16 11/17/16 11/17/16 07:00 15:00 23:00 07:00 15:00 23:00 Intake Total 1000 ml 700 ml Output Total 600 ml Balance 1000 ml -600 ml 700 ml Intake IV Total 1000 ml Other 700 ml Output Urine Total 600 ml Result Diagram: 11/17/16 0745 11/17/16 0745 Imaging Last Impressions Abdomen/Pelvis CT 11/16/16 0002 Signed Impressions: Service Date/Time: October 01:27 - CONCLUSION: 1. Moderate severity short segment Crohn's involvement of the distal ileum near the ileocolic anastomosis associated with a luminal narrowing and dilatation of small bowel up to 3.9 cm in the right lower quadrant. Findings are similar to November 2015 although small bowel is slightly more dilated on the current exam. No free fluid or free air. Law Bloom MD Objective Remarks GENERAL: Well-developed well-nourished. In no acute distress. SKIN: Warm and dry. No lesions noted. HEENT: Normocephalic. Pupils equal and round. Mucous membranes pink and moist. CARDIOVASCULAR: Regular rate and rhythm. No murmur appreciated. RESPIRATORY: No accessory muscle use. Clear to auscultation. Breath sounds equal bilaterally. GASTROINTESTINAL: Abdomen soft, nondistended. Mild left lower quadrant TTP. MUSCULOSKELETAL: No obvious deformities. No clubbing or cyanosis. No edema. NEUROLOGICAL: Awake and alert. No focal neurological deficits. Moves upper and lower extremities spontaneously. Normal speech. PSYCHIATRIC: Appropriate mood and affect; insight and judgment normal. A/P Assessment and Plan 31-year-old male with a past medical history of Crohn's disease and altered colitis who presented for abdominal pain Acute exacerbation of Crohn's disease: Reviewed: Abdominal CT shows minor severity short segment Crohn's involvement of the distal ileum near the heel of the colon anastomosis associated with a luminal narrowing and dilation of small bowel in the right lower quadrant; small bowel slightly more dilated compared to previous imaging. Tmax 99.9, no further fevers. No leukocytosis. ESR and CRP mildly elevated. -GI consulted, performed EGD and colonoscopy; found inflammation, ulceration, stricture at old surgical anastomosis site and performed dilation -Discussed with GI, continue steroid taper, no need for antibiotics at discharge , cleared for discharge if patient tolerates diet -Continue PPI -IVF Hypokalemia: Potassium 3.3. Replaced orally. Potassium now 3.5. Magnesium within normal limits. -Resolved Dehydration/JOÃO: Creatinine 1.32, previously 1.25 on 12/05/15. -Given IVF and creatinine improved to 1.01 DVT prophylaxis: Low risk Discharge Planning The patient is clinically improved and cleared by GI for discharge. Discharge home later today if patient tolerates lunch. Juancho Lund Nov 17, 2016 11:35
[2016-11-17] MEDS ORDERED: PRED5TAB PO (12:29)
[2016-11-17] MEDS ORDERED: PRED10 PO (12:29)
[2016-11-18] MEDS ORDERED: predniSONE 10 MG TAB PO SCH (09:00)
[2016-11-25] MEDS ORDERED: predniSONE 10 MG TAB PO SCH (09:00)
[2016-12-02] MEDS ORDERED: predniSONE 10 MG TAB PO SCH (09:00)
[2016-12-09] MEDS ORDERED: predniSONE 10 MG TAB PO SCH (09:00)
[2016-12-16] MEDS ORDERED: predniSONE 5 MG TAB PO SCH (09:00)
== END 2016-11-17 15:12 | disposition home or self-care (01) | DRG 386 ==
LOC: NEPE 21:42 → NEDA 11-16 02:42 → NEPGCP 11-16 03:33 → OBSVTOIN 11-16 11:22
PROVIDERS: ADMIT Family Medicine; ATTEND Family Medicine
PROC: 0DBB8ZX Excision of Ileum, Via Natural or Artificial Opening Endoscopic, Diagnostic (ICD-10-PCS; 2016-11-17)
PROC: 0DB68ZX Excision of Stomach, Via Natural or Artificial Opening Endoscopic, Diagnostic (ICD-10-PCS; principal; 2016-11-17 08:58)
PROC: 0D7B8ZZ Dilation of Ileum, Via Natural or Artificial Opening Endoscopic (ICD-10-PCS; 2016-11-17 08:58)
DX: K50.00 Crohn's disease of small intestine without complications (principal); N17.9 Acute kidney failure, unspecified; K91.89 Other postprocedural complications and disorders of digestive system; E87.6 Hypokalemia; E86.0 Dehydration; K29.70 Gastritis, unspecified, without bleeding; Y83.2 Surgical operation with anastomosis, bypass or graft as the cause of abnormal reaction of the patient, or of later complication, without mention of misadventure at the time of the procedure
CPT/HCPCS: 74177; 80048; 80053; 83690; 83735; 85025; 85610; 85652; 85730; 86140; 87205; 87328; 87329; 87493; 87506; 88305; 88312; 96361; 96374; 96375; C1726; J0744; J2270; J2405; J2765; J2920; J7030; Q9967

== ENCOUNTER 2017-04-10 10:13 | Emergency (ER) | payer SELFPAY ==
[~2017-04-10] VITALS: Ht 175.3 cm; Wt 80.0 kg
[~2017-04-10 10:13] MED LIST changes: -ADAL1INJ SQ; -CHLO.12%30 SSP; -CLIN1CAP6 PO; -IBUP800T23 PO; +PRED10 PO; +PRED5TAB PO
[2017-04-10] MEDS ORDERED: IOHEXOL 350 MG/ML 10 ML VIAL (for RAD DIAG) IVCONTRAST ONE (10:14)
[2017-04-10 10:15] VITALS: BP 119/72; PULSE 76; RESP 12; TEMP 98.4; O2SAT 98
[2017-04-10] MEDS ORDERED: SODIUM CHLOR 0.9% 1000 ML INJ 1,000 ML IV SCH (11:21)
--- NOTE | 2017-04-10 11:28 | PD ---
HPI Chief Complaint: Abdominal Pain Time Seen by Provider: 11:09 Travel History International Travel<30 days: No Contact w/Intl Traveler<30days: No Traveled to known affect area: No History of Present Illness HPI 32-year-old male complains of abdominal pain with nausea vomiting diarrhea. Patient has history of Crohn's disease. Patient states that the symptoms started 2 days ago. Patient states the pain as sharp pain cramping pain most localized around upper abdomen. Patient denies any pain radiation. Patient denies any blood or mucus in the stool. Patient denies any fever chills. Patient denies any dysuria or frequency. Patient status post partial: Partial small bowel resection in 2006. Patient with seen by Dr. Ryder, in the past for Crohn's disease. Patient was on prednisone intermittently in the past for Crohn's disease. Patient is not on any routine medication for Crohn's. PFSH Past Medical History Hx Anticoagulant Therapy: No Autoimmune Disease: No Blood Disorders: No Cancer: No Cardiovascular Problems: No Chemotherapy: No Cerebrovascular Accident: No Diabetes: No Diminished Hearing: No Endocrine: No Gastrointestinal Disorders: Yes (STATES HISTORY OF CROHN'S) GERD: No Genitourinary: No Headaches: Yes Hepatitis: No Hiatal Hernia: No Immune Disorder: No Implanted Vascular Access Dvce: No Musculoskeletal: No Neurologic: Yes Psychiatric: No Reproductive: No Respiratory: No Immunizations Current: No Migraines: Yes Radiation Therapy: No Seizures: No Sickle Cell Disease: No Ulcer: No Past Surgical History Abdominal Surgery: Yes (PARTIAL COLON AND PARTIAL SMALL BOWEL RESECTION AND COLONOSCOPY 11/09/06) AICD: No Appendectomy: Yes Arteriovenous Shunt: No Cardiac Surgery: No Cholecystectomy: No Ear Surgery: No Endocrine Surgery: No Eye Surgery: No Genitourinary Surgery: Yes (COLONOSCOPY, POLYP/HEMORRHOID REMOVAL 2006 +01/18 years ago colonoscopy) Gynecologic Surgery: No Insulin Pump: No Joint Replacement: No Neurologic Surgery: No Oral Surgery: No Pacemaker: No Thoracic Surgery: No Other Surgery: Yes Social History Alcohol Use: No Tobacco Use: No Substance Use: No Allergies-Medications (Allergen,Severity, Reaction): Coded Allergies: No Known Allergies (Verified Adverse Reaction, Unknown, 04/10/17) Reported Meds & Prescriptions Reported Meds & Active Scripts Active No Active Prescriptions or Reported Medications Review of Systems General / Constitutional: No: Fever Eyes: No: Visual changes HENT: No: Headaches Cardiovascular: No: Chest Pain or Discomfort Respiratory: No: Shortness of Breath Gastrointestinal: Positive: Nausea, Vomiting, Diarrhea, Abdominal Pain Genitourinary: No: Dysuria Musculoskeletal: No: Pain Skin: No Rash Neurologic: No: Weakness Psychiatric: No: Depression Endocrine: No: Polydipsia Hematologic/Lymphatic: No: Easy Bruising Physical Exam Narrative GENERAL: Well-nourished, well-developed patient. SKIN: Focused skin assessment warm/dry. HEAD: Normocephalic. EYES: No scleral icterus. No injection or drainage. NECK: Supple, trachea midline. No JVD or lymphadenopathy. CARDIOVASCULAR: Regular rate and rhythm without murmurs, gallops, or rubs. RESPIRATORY: Breath sounds equal bilaterally. No accessory muscle use. GASTROINTESTINAL: Abdomen soft, nondistended. Patient has mild to moderate diffuse tenderness over the abdomen. No rebound tenderness. No mass. MUSCULOSKELETAL: No cyanosis, or edema. BACK: Nontender without obvious deformity. No CVA tenderness. Data Data Last Documented VS Vital Signs Date Time Temp Pulse Resp B/P (MAP) Pulse Ox O2 Delivery O2 Flow Rate FiO2 04/10/17 11:44 04/10/17 10:15 98.4 76 12 98 Orders Orders Complete Blood Count With Diff (04/10/17 11:21) Comprehensive Metabolic Panel (04/10/17 11:21) Lipase (04/10/17 11:21) Urinalysis - C+S If Indicated (04/10/17 11:21) Iv Access Insert/Monitor (04/10/17 11:21) Ecg Monitoring (04/10/17 11:21) Oximetry (04/10/17 11:21) Sodium Chlor 0.9% 1000 Ml Inj (Ns 1000 M (04/10/17 11:21) Sodium Chloride 0.9% Flush (Ns Flush) (04/10/17 11:30) Famotidine Inj (Pepcid Inj) (04/10/17 11:30) Ct Abd/Pel W Iv Contrast(Rout) (04/10/17 12:22) Iohexol 350 Inj (Omnipaque 350 Inj) (04/10/17 10:14) Dexamethasone Inj (Decadron Inj) (04/10/17 14:45) Labs Laboratory Tests Test 04/10/17 11:15 04/10/17 11:35 White Blood Count 5.4 TH/MM3 Red Blood Count 4.66 MIL/MM3 Hemoglobin 13.2 GM/DL Hematocrit 38.5 % Mean Corpuscular Volume 82.7 FL Mean Corpuscular Hemoglobin 28.3 PG Mean Corpuscular Hemoglobin Concent 34.2 % Red Cell Distribution Width 13.6 % Platelet Count 320 TH/MM3 Mean Platelet Volume 7.3 FL Neutrophils (%) (Auto) 64.4 % Lymphocytes (%) (Auto) 21.6 % Monocytes (%) (Auto) 12.1 % Eosinophils (%) (Auto) 1.5 % Basophils (%) (Auto) 0.4 % Neutrophils # (Auto) 3.5 TH/MM3 Lymphocytes # (Auto) 1.2 TH/MM3 Monocytes # (Auto) 0.7 TH/MM3 Eosinophils # (Auto) 0.1 TH/MM3 Basophils # (Auto) 0.0 TH/MM3 CBC Comment DIFF FINAL Differential Comment Blood Urea Nitrogen 8 MG/DL Creatinine 1.02 MG/DL Random Glucose 81 MG/DL Total Protein 7.8 GM/DL Albumin 3.3 GM/DL Calcium Level 8.9 MG/DL Alkaline Phosphatase 56 U/L Aspartate Amino Transf (AST/SGOT) 17 U/L Alanine Aminotransferase (ALT/SGPT) 15 U/L Total Bilirubin 0.4 MG/DL Sodium Level 142 MEQ/L Potassium Level 3.8 MEQ/L Chloride Level 107 MEQ/L Carbon Dioxide Level 30.4 MEQ/L Anion Gap 5 MEQ/L Estimat Glomerular Filtration Rate 103 ML/MIN Lipase 126 U/L Urine Color YELLOW Urine Turbidity CLEAR Urine pH 6.0 Urine Specific [place] 1.025 Urine Protein TRACE mg/dL Urine Glucose (UA) NEG mg/dL Urine Ketones NEG mg/dL Urine Occult Blood SMALL Urine Nitrite NEG Urine Bilirubin NEG Urine Urobilinogen LESS THAN 2.0 MG/DL Urine Leukocyte Esterase NEG Urine RBC 2 /hpf Urine WBC 2 /hpf Urine Squamous Epithelial Cells <1 /hpf Urine Mucus FEW /lpf Urine Sperm RARE Microscopic Urinalysis Comment CULT NOT INDICATED MDM Medical Decision Making Medical Screen Exam Complete: Yes Emergency Medical Condition: Yes Interpretation(s) Last Impressions Abdomen/Pelvis CT 04/10/17 1222 Signed Impressions: Service Date/Time: Monday, April 10, 2017 13:36 - CONCLUSION: 1. Moderate severity 10 cm segment Crohn's involvement of the distal ileum near the ileocolic anastomosis associated with mild luminal narrowing and perienteric inflammatory stranding. No associated bowel obstruction. No free air or free fluid. Law Bloom MD 1434 PM. CBC within normal limit. CMP within normal limit. UA negative. Differential Diagnosis Differential diagnosis: Gastroenteritis, gastritis, PUD, appendicitis, cholecystitis, colitis, UTI, pyelonephritis. Narrative Course 32-year-old male with abdominal pain, nausea vomiting diarrhea. History of Crohn's disease. Status post partial colectomy and small bowel removal. Decadron 8 mg IV. Normal saline solution 1 25 cc an hour. Pepcid 20 mg IV. Diagnosis Primary Impression: Crohn's disease (regional enteritis) Qualified Codes: K50.00 - Crohn's disease of small intestine without complications Patient Instructions: General Instructions Additional Instructions: Prednisone as directed. Follow-up with sample examiner and local physician. Return if worse. Med/Other Pt SpecificInfo: Prescription(s) given Scripts Ondansetron Odt (Zofran Odt) 4 Mg Tab 4 MG SL Q6HR Y for Nausea/Vomiting, #10 TAB 0 Refills Prov: Yonatan Sharp MD 04/10/17 Tramadol (Ultram) 50 Mg Tab 50 MG PO Q6H Y for PAIN, #20 TAB 0 Refills Prov: Yonatan Sharp MD 04/10/17 Prednisone (Prednisone) 20 Mg Tab 20 MG PO BID, #60 TAB 0 Refills Prov: Yonatan Sharp MD 04/10/17 Disposition: 01 DISCHARGE HOME Condition: Stable Yonatan Sharp MD Apr 10, 2017 11:28
[2017-04-10] MEDS ORDERED: FAMOTIDINE 20 MG/2 ML VIAL IV PUSH ONE (11:30)
[2017-04-10] MEDS ORDERED: SODIUM CHLORIDE 0.9% FLUSH 10 ML FLUSH IV FLUSH PRN (11:30)
[2017-04-10 12:01] LABS: AUTOMATED NEUTROPHIL # 3.5 TH/MM3 (1.8-7.7); BASOPHIL % 0.4 % (0.0-2.0); EOSINOPHIL # 0.1 TH/MM3 (0-0.4); EOSINOPHIL % 1.5 % (0.0-4.0); HEMATOCRIT 38.5 % (39.0-51.0); HEMOGLOBIN 13.2 GM/DL (13.0-17.0); LYMPH % 21.6 % (9.0-44.0); LYMPHOCYTE # 1.2 TH/MM3 (1.0-4.8); MEAN CELL VOLUME 82.7 FL (80.0-100.0); MEAN CORPUSCULAR HEMOGLOBIN 28.3 PG (27.0-34.0); MEAN CORPUSCULAR HGB CONC 34.2 % (32.0-36.0); MEAN PLATELET VOLUME 7.3 FL (7.0-11.0); MONO % 12.1 % (0.0-8.0); MONOCYTE # 0.7 TH/MM3 (0-0.9); NEUT % 64.4 % (16.0-70.0); PLATELET COUNT 320 TH/MM3 (150-450); RED BLOOD COUNT 4.66 MIL/MM3 (4.50-5.90); RED CELL DISTRIBUTION WIDTH 13.6 % (11.6-17.2); WHITE BLOOD COUNT 5.4 TH/MM3 (4.0-11.0)
[2017-04-10 12:04] LABS: BILIRUBIN, URINE NEG (NEG); BLOOD, URINE SMALL (NEG); GLUCOSE,URINE NEG (NEG); KETONE, URINE NEG (NEG); MUCUS URINE FEW /lpf (OCC); NITRITE,URINE NEG (NEG); SPERM, URINE RARE; SQUAMOUS EPITHELIAL CELL URINE <1 /hpf (0-5); URINE COLOR YELLOW (YELLW/STRAW); URINE LEUKOCYTE ESTERASE NEG (NEG)
[2017-04-10 12:27] LABS: ALBUMIN 3.3 GM/DL (3.4-5.0); ALT (GPT) 15 U/L (12-78); AST (GOT) 17 U/L (15-37); BICARBONATE 30.4 MEQ/L (21.0-32.0); BLOOD UREA NITROGEN 8 MG/DL (7-18); CALCIUM 8.9 MG/DL (8.5-10.1); CHLORIDE 107 MEQ/L (98-107); CREATININE 1.02 MG/DL (0.60-1.30); GLOMERULAR FILTRATION RATE 103 ML/MIN (>89); GLUCOSE,RANDOM 81 MG/DL (74-106); LIPASE 126 U/L (73-393); SODIUM (NA) 142 MEQ/L (136-145)
[2017-04-10 12:28] LABS: ALKALINE PHOSPHATASE 56 U/L (45-117); TOTAL BILIRUBIN ADULT 0.4 MG/DL (0.2-1.0); TOTAL PROTEIN 7.8 GM/DL (6.4-8.2)
--- NOTE | 2017-04-10 14:20 | RADRPT ---
EXAM DATE/TIME: 04/10/2017 13:36 [facility] COMPARISON: No previous studies available for comparison. INDICATIONS : Right abdominal pain, nausea, vomiting and diarrhea x 2 days. IV CONTRAST: 95 cc Omnipaque 350 (iohexol) IV ORAL CONTRAST: No oral contrast ingested. RADIATION DOSE: 6.38 CTDIvol (mGy) MEDICAL HISTORY : Crohn's disease. SURGICAL HISTORY : Colon resection. Appendectomy. ENCOUNTER: Initial ACUITY: 2 days PAIN SCALE: 7/10 LOCATION: Right abdomen. TECHNIQUE: Volumetric scanning of the abdomen and pelvis was performed. Using automated exposure control and ad justment of the mA and/or kV according to patient size, radiation dose was kept as low as reasonably achievable to obtain optimal diagnostic quality images. DICOM format image data is available electro nically for review and comparison. FINDINGS: Comparison November 16, 2016. There is moderate mural thickening of an approximately 10 cm loop of dist al small bowel proximal to the ileocolic anastomosis characteristic of Crohn's disease. This is not a ssociated with bowel obstruction on current exam. No discrete or drainable abscess is seen. Lung bases clear. No acute findings in the liver, spleen, adrenals, kidneys or pancreas. No calcified gallstones. No acute bony abnormalities. CONCLUSION: 1. Moderate severity 10 cm segment Crohn's involvement of the distal ileum near the ileocolic anastom osis associated with mild luminal narrowing and perienteric inflammatory stranding. No associated bow el obstruction. No free air or free fluid. Law Bloom MD on April 10, 2017 at 14:10 Board Certified Radiologist. This report was verified electronically.
[2017-04-10] MEDS ORDERED: DEXAMETHASONE SOD PHOS 4 MG/ML VIAL IV PUSH ONE (14:45)
[2017-04-10] MEDS ORDERED: PRED20 PO (14:51)
[2017-04-10] MEDS ORDERED: TRAM50 PO (14:51)
[2017-04-10] MEDS ORDERED: ZOFR4TAB3 SL (14:52)
== END 2017-04-10 15:11 | disposition home or self-care (01) ==
LOC: NEPD 10:13
DX: K50.00 Crohn's disease of small intestine without complications (principal); Z90.49 Acquired absence of other specified parts of digestive tract
CPT/HCPCS: 74177; 80053; 81001; 83690; 85025; 96361; 96374; 96375; 99285; J1100; J7030; Q9967

== ENCOUNTER 2018-01-29 08:40 | Inpatient (IN) ==
--- NOTE | 2018-01-29 09:17 | ED ---
HPI General Chief Complaint: Abdominal Pain Stated Complaint: abd pain Time Seen by Provider: 01/29/18 09:00 Source: patient Mode of arrival: ambulatory Limitations: no limitations History of Present Illness HPI narrative: 32-year-old male notes lower abdominal pain, vomiting, diarrhea, chills over the past week. He states his last hospitalization with his Crohn's was a year or 2 ago. He states about 11 years ago he had to have part of his bowel removed with his Crohn's. He states that he has no other concurrent complaints. Quality is sharp. Severity is moderate. He denies specific modifying factors. Related Data Home Medications Medication Instructions Recorded Confirmed No Known Home Medications 01/29/18 01/29/18 Allergies Allergy/AdvReac Type Severity Reaction Status Date / Time No Known Allergies Allergy Verified 01/29/18 09:04 Review of Systems ROS: all other systems reviewed are negative [facility] Medical History Medical History Crohns disease (Acute) Surgical History Surgical History H/O resection of small bowel (Acute) Social History Social History Substance History: No History of Abuse Smoking Status: Never smoker How Often Do You Have a Drink Containing Alcohol: Never Recent Travel in [facility] within the Last 8 Weeks: No Recent Out of Country Travel within the Last 8 Weeks: No Immunization History Tetanus Immunization: <5 Years Exam Narrative Exam Narrative: GENERAL: 32 y/o male in no apparent distress SKIN: Focused skin assessment warm/dry. HEAD: Atraumatic. Normocephalic. EYES: Pupils equal and round. No scleral icterus. No injection or drainage. ENT: No nasal bleeding or discharge. Mucous membranes pink and moist. NECK: Trachea midline. No JVD. CARDIOVASCULAR: Regular rate and rhythm. GASTROINTESTINAL: Abdomen soft, mild ttp diffusely, nondistended MUSCULOSKELETAL: No obvious deformities. No clubbing. No cyanosis. NEUROLOGICAL: Awake and alert. Motor grossly within normal limits. Normal speech. PSYCHIATRIC: Appropriate mood and affect; insight and judgment normal. Course Reevaluation(s) Reevaluation #1: On reevaluation patient without symptoms improvement after lower dose of morphine with initial hypotension. Blood pressure is stable so will repeat additional morphine. Patient updated about CT scan and agrees to admission. He states his previous surgeon was Dr. Espinoza so we will also discuss case with him. Consultations Consultation #1: dr espinoza states npo except ice chips, will follow as consult , 7th floor if possible, no ng Consultation #2: resident team agrees to admit Initial Documented Vital Signs Temperature 98.6 F 01/29/18 08:51 Pulse Rate 90 01/29/18 08:51 Respiratory Rate 20 01/29/18 08:51 Blood Pressure 110/79 01/29/18 08:51 Pulse Oximetry 97 01/29/18 08:51 Last Documented Vital Signs Temperature 98.6 F 01/29/18 08:51 Pulse Rate 80 01/29/18 10:29 Respiratory Rate 14 01/29/18 11:03 Blood Pressure 119/58 L 01/29/18 10:29 Pulse Oximetry 100 01/29/18 10:29 Medical Decision Making MDM Narrative Medical decision making narrative: will check labs, ua, ct and reevaluate after ivf and zofran Medical Screen Exam Complete: Yes Emergency Medical Condition: Yes Differential Diagnosis Differential Diagnosis: chron's exacerbation, uti, pancreatitis..... Lab Data Lab results reviewed: Yes I reviewed the patient's lab results. Result diagrams: 01/29/18 09:17 01/29/18 09:17 Lab Results 01/29/18 01/29/18 01/29/18 Range/Units 09:17 09:17 09:26 WBC 7.7 (4.0-11.0) th/mm3 RBC 4.93 (4.50-5.90) mil/mm3 Hgb 14.2 (13.0-17.0) gm/dL Hct 42.0 (39.0-51.0) % MCV 85.2 (80.0-100.0) fL MCH 28.7 (27.0-34.0) pg MCHC 33.7 (32.0-36.0) % RDW 13.8 (11.6-17.2) % Plt Count 270 (150-450) th/mm3 MPV 7.5 (7.0-11.0) fL Neut % (Auto) 75.5 H (16.0-70.0) % Lymph % (Auto) 14.1 (9.0-44.0) % [place] % (Auto) 9.3 H (0.0-8.0) % Eos % (Auto) 0.9 (0.0-4.0) % Baso % (Auto) 0.2 (0.0-2.0) % Neut # (Auto) 5.8 (1.8-7.7) th/mm3 Lymph # (Auto) 1.1 (1.0-4.8) th/mm3 [place] # (Auto) 0.7 (0.0-0.9) th/mm3 Eos # (Auto) 0.1 (0.0-0.4) th/mm3 Baso # (Auto) 0.0 (0.0-0.2) th/mm3 WBC Differential . Differential Comment Auto diff final Sodium 141 (136-145) meq/L Potassium 3.7 (3.5-5.1) meq/L Chloride 105 (98-107) meq/L Carbon Dioxide 26.0 (21.0-32.0) meq/L Anion Gap 10 (5-15) meq/L BUN 14 (7-18) mg/dL Creatinine 1.10 (0.60-1.30) mg/dL Estimated GFR Greater than 89 (>89) mL/min Random Glucose 89 (74-106) mg/dL Calcium 9.1 (8.5-10.1) mg/dL Magnesium 2.0 (1.5-2.5) mg/dL Total Bilirubin 0.7 (0.2-1.0) mg/dL AST 24 (15-37) U/L ALT 24 (12-78) U/L Alkaline Phosphatase 69 (45-117) U/L Total Protein 8.3 H (6.4-8.2) g/dL Albumin 3.7 (3.4-5.0) g/dL Lipase 73 (73-393) U/L Urine Color Yellow (Yellw/Straw) Urine Clarity Clear (Clear) Urine pH 5.0 (5.0-8.5) Ur Specific [place] 1.027 (1.002-1.035) Urine Protein Negative (Neg-Trace) mg/dL Urine Glucose (UA) Negative (Negative) mg/dL Urine Ketones Negative (Negative) mg/dL Urine Occult Blood Negative (Negative) Urine Nitrate Negative (Negative) Urine Bilirubin Negative (Negative) Urine Urobilinogen Less than 2 (Less than 2) mg/dL Ur Leukocyte Esterase Negative (Negative) Urine RBC 2 (0-3) /hpf Urine WBC 4 (0-5) /hpf Urine Mucus Few H (Occasional) /lpf Micro UA Comment Culture not ind Ur Microscopic Review Not Reportable Urine Culture Comments Culture not ind Imaging Data Attestation: I personally reviewed and interpreted this imaging study as follows : Radiologist's impression: Abdomen/Pelvis CT 01/29/18 09:08 CONCLUSION: 1. Patient is post resection of the terminal ileum and cecum. There is intense inflammatory change and bowel thickening involving the anastomosis suggesting active inflammatory bowel disease. The small bowel proximal to this is dilated and fluid-filled indicating some degree of partial small bowel obstruction. No free air is seen. No abscess is evident. 2. There are scattered, mildly enlarged nodes within the mesentery. These are similar to previous of 04/10/2017. Discharge Plan Discharge Disposition Patient Disposition: 30 Still Patient Discharge Details Diagnosis: Abdominal pain, Partial small bowel obstruction, Acute Crohn's disease Physicians Team ED Provider: Kya Yan Primary Care Provider: Primary Care Susana Cohn Rxs /Orders / Referrals /Forms Prescriptions: No Action No Known Home Medications RF: 0 Discharge Interventions Interventions: Vital Signs Last Done: 01/29/18 10:29 Status ED Status: Admitted Patient
[2018-01-29 09:43] LABS: Baso % (Auto) 0.2 % (0.0-2.0); Eos # (Auto) 0.1 th/mm3 (0.0-0.4); Eos % (Auto) 0.9 % (0.0-4.0); Hemoglobin 14.2 gm/dL (13.0-17.0); Lymph # (Auto) 1.1 th/mm3 (1.0-4.8); Lymph % (Auto) 14.1 % (9.0-44.0); Mean Corpuscular HGB Conc 33.7 % (32.0-36.0); Mean Corpuscular Hemoglobin 28.7 pg (27.0-34.0); Mean Corpuscular Volume 85.2 fL (80.0-100.0); Mean Platelet Volume 7.5 fL (7.0-11.0); Mono # (Auto) 0.7 th/mm3 (0.0-0.9); Mono % (Auto) 9.3 % (0.0-8.0); Neut # (Auto) 5.8 th/mm3 (1.8-7.7); Neut % (Auto) 75.5 % (16.0-70.0); Platelet Count 270 th/mm3 (150-450); Red Blood Count 4.93 mil/mm3 (4.50-5.90); Red Cell Distribution Width 13.8 % (11.6-17.2); White Blood Count 7.7 th/mm3 (4.0-11.0)
[2018-01-29 09:48] LABS: Bilirubin,Urine Negative (Negative); Clarity,Urine Clear (Clear); Color,Urine Yellow (Yellw/Straw); Glucose,Urine (UA) Negative (Negative); Leukocyte Esterase,Urine Negative (Negative); Mucus,Urine Few /lpf (Occasional); Nitrite,Urine Negative (Negative); Specific Gravity,Urine 1.027 (1.002-1.035)
[2018-01-29 09:59] LABS: Albumin 3.7 g/dL (3.4-5.0); Anion Gap 10 meq/L (5-15); Aspartate Aminotransferase 24 U/L (15-37); Blood Urea Nitrogen 14 mg/dL (7-18); Calcium 9.1 mg/dL (8.5-10.1); Chloride 105 meq/L (98-107); Glomerular Filtration Rate Greater Than 89 mL/min (>89); Glucose,Random 89 mg/dL (74-106); Lipase 73 U/L (73-393); Potassium 3.7 meq/L (3.5-5.1); Sodium 141 meq/L (136-145)
[2018-01-29 10:00] LABS: Alanine Aminotransferase 24 U/L (12-78)
[2018-01-29 10:03] LABS: Alkaline Phosphatase 69 U/L (45-117); Total Protein 8.3 g/dL (6.4-8.2)
[2018-01-29] MEDS ORDERED: Morphine Sulfate Inj 2 MG/ML Vial IV.PUSH ONE ×2 (10:11→10:43)
[2018-01-29] MEDS ORDERED: Sod Chloride 0.9% Inj 1,000 ML IV.SIG SCH (10:15)
--- NOTE | 2018-01-29 10:31 | CT ---
EXAM DATE: 01/29/2018 10:23 AM EST AGE/SEX: 32 years / Male INDICATIONS: Lower abdominal pain. Nausea, vomiting and diarrhea. CLINICAL DATA: This is the patient's initial encounter. Patient reports that signs and symptoms have been present for 1 day and indicates a pain score of 7/10. MEDICAL/SURGICAL HISTORY: Crohn's disease. Colon resection. ORAL CONTRAST: No oral contrast ingested. RADIATION DOSE: 6.71 CTDI (mGy) COMPARISON: [facility] [place] ABDOMEN & PELVIS W CONTRAST, 04/10/2017. . TECHNIQUE: Multiple contiguous axial images were obtained through the abdomen and pelvis following b olus infusion of 95 ml Omnipaque 350 (iohexol) nonionic water-soluble contrast as a single exam dos e. No oral contrast ingested. Using automated exposure control and adjustment of the mA and/or kV ac cording to patient size, radiation dose was kept as low as reasonably achievable to obtain optimal di agnostic quality images. DICOM format image data is available electronically for review and comparis on. FINDINGS: The limited portion of lung base visualized is clear. The appearance of the liver, spleen, pancreas, adrenal glands and kidneys is within normal limits. There are some small, mildly enlarged nodes within the mesentery. The largest measures approximately 1.4 x 0.8 cm. These are nonspecific in appearance. Follow-up to ensure these do not enlarged would be warranted. Examination of the visualized loops of small and large bowel demonstrate previous resection of the te rminal ileum and portions of the cecum. There is fairly severe inflammatory change involving the anas tomosis. This appears significantly narrowed. The small bowel proximal to this appears dilated and fl uid-filled. This would suggest there is at least some degree of partial bowel obstruction. The colon is decompressed. There is no free intraperitoneal air. No free intraperineal fluid is present. There is no free fluid within the pelvis. No iliac or inguinal adenopathy is seen. CONCLUSION: 1. Patient is post resection of the terminal ileum and cecum. There is intense inflammatory change a nd bowel thickening involving the anastomosis suggesting active inflammatory bowel disease. The small bowel proximal to this is dilated and fluid-filled indicating some degree of partial small bowel obs truction. No free air is seen. No abscess is evident. 2. There are scattered, mildly enlarged nodes within the mesentery. These are similar to previous of 04/10/2017. Electronically signed by: Tereso Gentile MD 01/29/2018 10:30 AM EST
--- NOTE | 2018-01-29 12:13 | P.HPFP ---
History of Present Illness Primary Care Physician: No Primary Care Physician <AvilafaustinoDorian - 01/29/18 19:20> No Primary Care Physician <Foster Williamson III 01/29/18 12:13> Chief Complaint: abdominal pain <Foster Williamson III 01/29/18 17:47> History of Present Illness: Mr العلي is a 32 yo with history of Crohn's disease s/p partial bowel resection who presents with abdominal pain for the past 3 days. The pain started Sunday. He started vomiting. It was just liquid with non-bloody emesis. He has been dizzy. Last bowel movement was 11PM last night and has been intermittently constipated for the past few days. He usually has 4 BMs per day. He does not have a primary care doctor. He used to follow with DEL[facility]. He has had a reduced appetite. He had a subjective fever on Sunday and Sunday with chills and night sweats. No blood in stool. The stool was dark green, but not black. His stool has been more "grainy" recently. His abdomen is sore to touch. The pain radiates to his back. No hematuria, dysuria, chest pain, SOB, leg pains. PMH: Crohn's disease PSH: Partial bowel resection Medications: None currently, but was on prednisone. He quit taking it in March 2017. Allergies: None Family Hx: mother: healthy father: healthy uncle: sickle cell Social: tobacco: none alcohol: none drugs: none Lives in [place] with and 8 children <Foster Williamson III 01/29/18 17:47> - Diagnosis (1) Partial small bowel obstruction (2) Acute Crohn's disease (3) Abdominal pain (4) Nutrition, metabolism, and development symptoms <Dorian Lambert 01/29/18 19:20> (1) Partial small bowel obstruction (2) Acute Crohn's disease (3) Abdominal pain (4) Nutrition, metabolism, and development symptoms <Foster Williamson III 01/29/18 18:49> Inpatient Certification: I certify that the inpatient services were ordered in accordance with Medicare regulations governing the order. This includes certification that hospital inpatient services are reasonable and necessary and in the case of services not specified as inpatient-only under 42 CFR 419.22(n), that they are appropriately provided as inpatient services in accordance to with the 2-midnight benchmark under 43 CFR 412.3(e) <FaustoDorian - 01/29/18 19:20> I certify that the inpatient services were ordered in accordance with Medicare regulations governing the order. This includes certification that hospital inpatient services are reasonable and necessary and in the case of services not specified as inpatient-only under 42 CFR 419.22(n), that they are appropriately provided as inpatient services in accordance to with the 2-midnight benchmark under 43 CFR 412.3(e) <[facility] 01/29/[facility] 12:13> Review of Systems Constitutional: Reports chills, Reports fever(s), Reports other (decreased appetite) <[facility] 01/29/18 17:47> Eyes: Denies change in vision <[facility] 01/29/18 17:47> Ears, Nose, Mouth, and Throat: Reports dizziness, Denies mouth lesions, Denies mouth pain <[facility] 01/29/18 17:47> Cardiovascular: Reports lightheadedness, Denies chest pain <[facility] 01/29/18 17:47> Respiratory: Reports shortness of breath, Denies cough <[facility] 01/29/18 17:47> Gastrointestinal: Reports abdominal pain, Reports change in bowel habits, Reports change in stools, Reports constipation, Reports heartburn, Reports loose stools, Reports nausea, Reports vomiting, Denies bright, red blood in stools, Denies coffee ground vomit, Denies incontinent of stools <[facility] 01/29/18 17:47> Genitourinary: Denies painful urination, Denies penile discharge <[facility] 01/29/18 17:47> Skin/Breast: Reports rash (on bilateral hands) <[facility] 01/29/18 17:47> Neurologic: Reports dizziness <[facility] 01/29/18 17:47> PMFSH - History History Provided By: Patient, Significant Other <[facility] 12:13> - Medical History Medical History: Medical History (Last Reviewed 01/29/18 @ 09:15 by Kya Yan MD) Crohns disease <AvilafaustinoDorian 01/29/18 19:20> Medical History (Last Reviewed 01/29/18 @ 09:15 by Kya Yan MD) Crohns disease <Foster Williamson III 01/29/18 12:13> - Surgical History Surgical History: Surgical History (Last Reviewed 01/29/18 @ 09:15 by Kya Yan MD) H/O resection of small bowel <AvilafaustinoDorian Catarino 01/29/18 19:20> Surgical History (Last Reviewed 01/29/18 @ 09:15 by Kya Yan MD) H/O resection of small bowel <Foster Williamson III 01/29/18 12:13> - Tobacco History Smoking Status: Never smoker <Foster Williamson III 01/29/18 12:13> - Alcohol History How Often Do You Have a Drink Containing Alcohol: Never <Foster Williamson III 01/29/18 12:13> - Substance Use History Substance History: No History of Abuse <Foster Williamson III 01/29/18 12:13> - Travel History Recent Travel in the [facility] Within the Last 8 Weeks: No <Foster Williamson III 12:13> Recent Travel Out of the Country Within the Last 8 Weeks: No <Foster Williamson III 01/29/18 12:13> - Immunization History Tetanus Immunization: <5 Years <Foster Williamson III 01/29/18 12:13> Medications and Allergies Allergies Allergy/AdvReac Type Severity Reaction Status Date / Time No Known Allergies Allergy Verified 01/29/18 09:04 <Dorian Lambert Rafia Catarino 01/29/18 19:20> Home Medications Medication Instructions Recorded Confirmed Type No Known Home Medications 01/29/18 01/29/18 History <NuraDorian pierson Rafia Catarino 01/29/18 19:20> Active Medications: Active Medications Acetaminophen (Tylenol) 650 mg PO Q4H PRN PRN Reason: Temp > 100.4 Sodium Chloride (Ns Inj) 1,000 mls @ 120 mls/hr IV.CONT .Q8H20M [facility] Last Admin: 01/29/18 16:12 Dose: 120 mls/hr Ibuprofen (Motrin) 400 mg PO Q6HR PRN PRN Reason: PAIN SCALE 1 TO 2 Mesalamine (Pentasa Sr) 1,000 mg PO QID [facility] Methylprednisolone Sodium Succinate (Solumedrol Inj) 40 mg IV.PUSH Q12H [facility] Last Admin: 01/29/18 17:57 Dose: 40 mg Morphine Sulfate (Morphine Inj) 2 mg IV.PUSH Q3H PRN PRN Reason: PAIN 3-5; IF UABLE TO TAKE PO Morphine Sulfate (Morphine Inj) 4 mg IV.PUSH Q3H PRN PRN Reason: PAIN 6-10;IF UNABLE TO TAKE PO Last Admin: 01/29/18 17:57 Dose: 4 mg Morphine Sulfate (Morphine Inj) 4 mg IV.PUSH Q3H PRN PRN Reason: BREAKTHROUGH PAIN Naloxone HCl (Narcan Inj) 0.4 mg IV.PUSH UNSCH PRN PRN Reason: SEE LABEL COMMENTS Ondansetron HCl (Zofran Inj) 4 mg IV.PUSH Q6H PRN PRN Reason: NAUSEA OR VOMITING Sodium Chloride (Ns Flush) 2 ml IV.FLUSH PRN PRN PRN Reason: FLUSH AFTER USING IV ACCESS <Dorian Lambert K - 01/29/18 19:20> Active Medications Sodium Chloride (Ns Flush) 2 ml IV.FLUSH PRN PRN PRN Reason: FLUSH AFTER USING IV ACCESS <Foster Williamson III - 01/29/18 12:13> Exam Vital signs: Vital Signs 01/29/18 08:51 01/29/18 09:08 01/29/18 10:29 Temperature 98.6 F Pulse Rate 90 81 80 Respiratory Rate 20 16 16 Blood Pressure 110/79 115/56 L 119/58 L Pulse Oximetry 97 95 100 01/29/18 11:03 01/29/18 11:30 01/29/18 13:11 Temperature 97.7 F Pulse Rate 75 68 Respiratory Rate 14 14 16 Blood Pressure 110/65 111/54 L Pulse Oximetry 100 01/29/18 16:00 Temperature 97.4 F L Pulse Rate 72 Respiratory Rate 18 Blood Pressure 108/57 L Pulse Oximetry 97 Intake & Output 01/29/18 01/29/1818 06:59 18:59 06:59 Intake Total 1000 / 1000 Balance 1000 / 1000 Weight 78.925 kg Intake: IV 1000 / 1000 NS Inj 1,000 ML @ 1000 mls/hr 1000 / 1000 IV.SIG BOLUS DANYELL Rx#:[id number] <NuradangeloDorian Rafia - 01/29/18 19:20> Vital Signs 01/29/18 08:51 01/29/18 09:08 01/29/18 10:29 Temperature 98.6 F Pulse Rate 90 81 80 Respiratory Rate 20 16 16 Blood Pressure 110/79 115/56 L 119/58 L Pulse Oximetry 97 95 100 01/29/18 11:03 Temperature Pulse Rate Respiratory Rate 14 Blood Pressure Pulse Oximetry Intake & Output 01/28/18 01/29/18 01/29/18 18:59 06:59 18:59 Intake Total 1000 / 1000 Balance 1000 / 1000 Weight 78.925 kg Intake: IV 1000 / 1000 NS Inj 1,000 ML @ 1000 mls/hr 1000 / 1000 IV.SIG BOLUS DANYELL Rx#:[id number] <Foster Williamson III - 01/29/18 12:13> Narrative: GENERAL: Young AAM lying in bed in NAD SKIN: Warm and dry. Hyperkertotic rough patches on bilateral hands mostly on dorsal aspect of MCPs near thumb and index finger. HEAD: Normocephalic. Atraumatic. EYES: No scleral icterus. No injection or drainage. EOMI. NECK: Supple, trachea midline. No JVD or lymphadenopathy. CARDIOVASCULAR: Regular rate and rhythm without murmurs, gallops, or rubs. RESPIRATORY: Breath sounds equal bilaterally. No accessory muscle use. GASTROINTESTINAL: Abdomen mildly tense, moderately tender to palpation, nondistended. There is a uniform band about 1 cm in width that extends transversely across the abdomen just below the umbilicus. No guarding or rebound. MUSCULOSKELETAL: No cyanosis, or edema. BACK: Nontender without obvious deformity. No CVA tenderness. <TelmaFoster marino III - 01/29/18 19:09> Results - Labs Result diagrams: 01/29/18 09:17 01/29/18 09:17 <FaustoDorian Rafia - 01/29/18 19:20> Abnormal lab results 01/29/18 01/29/18 01/29/18 Range/Units 09:17 09:17 09:26 Neut % (Auto) 75.5 H (16.0-70.0) % [place] % (Auto) 9.3 H (0.0-8.0) % Total Protein 8.3 H (6.4-8.2) g/dL Urine Mucus Few H (Occasional) /lpf Short CBC 01/29/18 Range/Units 09:17 WBC 7.7 (4.0-11.0) th/mm3 Hgb 14.2 (13.0-17.0) gm/dL Hct 42.0 (39.0-51.0) % Plt Count 270 (150-450) th/mm3 BMP 01/29/18 09:17 Sodium 141 Potassium 3.7 Chloride 105 Carbon Dioxide 26.0 BUN 14 Creatinine 1.10 Calcium 9.1 Liver Function 01/29/18 Range/Units 09:17 Total Bilirubin 0.7 (0.2-1.0) mg/dL AST 24 (15-37) U/L ALT 24 (12-78) U/L Alkaline Phosphatase 69 (45-117) U/L Albumin 3.7 (3.4-5.0) g/dL Urine 01/29/18 Range/Units 09:26 Urine Color Yellow (Yellw/Straw) Urine Clarity Clear (Clear) Urine pH 5.0 (5.0-8.5) Ur Specific [place] 1.027 (1.002-1.035) Urine Protein Negative (Neg-Trace) mg/dL Urine Glucose (UA) Negative (Negative) mg/dL <Dorian Lambert K - 01/29/18 19:20> Abnormal lab results 01/29/18 01/29/18 01/29/18 Range/Units 09:17 09:17 09:26 Neut % (Auto) 75.5 H (16.0-70.0) % [place] % (Auto) 9.3 H (0.0-8.0) % Total Protein 8.3 H (6.4-8.2) g/dL Urine Mucus Few H (Occasional) /lpf Short CBC 01/29/18 Range/Units 09:17 WBC 7.7 (4.0-11.0) th/mm3 Hgb 14.2 (13.0-17.0) gm/dL Hct 42.0 (39.0-51.0) % Plt Count 270 (150-450) th/mm3 BMP 01/29/18 09:17 Sodium 141 Potassium 3.7 Chloride 105 Carbon Dioxide 26.0 BUN 14 Creatinine 1.10 Calcium 9.1 Liver Function 01/29/18 Range/Units 09:17 Total Bilirubin 0.7 (0.2-1.0) mg/dL AST 24 (15-37) U/L ALT 24 (12-78) U/L Alkaline Phosphatase 69 (45-117) U/L Albumin 3.7 (3.4-5.0) g/dL Urine 01/29/18 Range/Units 09:26 Urine Color Yellow (Yellw/Straw) Urine Clarity Clear (Clear) Urine pH 5.0 (5.0-8.5) Ur Specific [place] 1.027 (1.002-1.035) Urine Protein Negative (Neg-Trace) mg/dL Urine Glucose (UA) Negative (Negative) mg/dL <Foster Williamson III - 01/29/18 12:13> - Imaging Impressions Abdomen/Pelvis CT 01/29/18 09:08 CONCLUSION: 1. Patient is post resection of the terminal ileum and cecum. There is intense inflammatory change and bowel thickening involving the anastomosis suggesting active inflammatory bowel disease. The small bowel proximal to this is dilated and fluid-filled indicating some degree of partial small bowel obstruction. No free air is seen. No abscess is evident. 2. There are scattered, mildly enlarged nodes within the mesentery. These are similar to previous of 04/10/2017. <Dorian Lambert - 01/29/18 19:20> Impressions Abdomen/Pelvis CT 01/29/18 09:08 CONCLUSION: 1. Patient is post resection of the terminal ileum and cecum. There is intense inflammatory change and bowel thickening involving the anastomosis suggesting active inflammatory bowel disease. The small bowel proximal to this is dilated and fluid-filled indicating some degree of partial small bowel obstruction. No free air is seen. No abscess is evident. 2. There are scattered, mildly enlarged nodes within the mesentery. These are similar to previous of 04/10/2017. <Foster Williamson III - 01/29/18 12:13> Caprini VTE Risk Assessment Caprini VTE Risk Assessment: No/Low Risk (score <= 1) <Foster Williamson III H - 17:47> Caprini Risk Assessment Model: Point Value = 1 Point Value = 2 Point Value = 3 Point Value = 5 Age 41-60 Minor surgery BMI > 25 kg/m2 Swollen legs Varicose veins or History of unexplained or recurrent spontaneous Oral contraceptives or hormone replacement Sepsis (< 1 month) Serious lung disease, including pneumonia (< 1 month) Abnormal pulmonary function Acute myocardial infarction Congestive heart failure (< 1 month) History of inflammatory bowel disease Medical patient at bed rest Age 61-74 Arthroscopic surgery Major open surgery (> 45 min) Laparoscopic surgery (> 45 min) Malignancy Confined to bed (> 72 hours) Immobilizing plaster cast Central venous access Age >= 75 History of VTE Family history of VTE Factor V Leiden Prothrombin [id number] Lupus anticoagulant Anticardiolipin antibodies Elevated serum homocysteine Heparin-induced thrombocytopenia Other congenital or acquired thrombophilia Stroke (< 1 month) Elective arthroplasty Hip, pelvis, or leg fracture Acute spinal cord injury (< 1 month) <Dorian Lambert - 01/29/18 19:20> Prophylaxis Regimen: Total Risk Factor Score Risk Level Prophylaxis Regimen 0-1 Low Early ambulation 2 Moderate Order ONE of the following: *Sequential Compression Device (SCD) *Heparin 5000 units SQ BID 3-4 Higher Order ONE of the following medications: *Heparin 5000 units SQ TID *Enoxaparin/Lovenox 40 mg SQ daily (WT < 150 kg, CrCl > 30 mL/min) *Enoxaparin/Lovenox 30 mg SQ daily (WT < 150 kg, CrCl > 10-29 mL/min) *Enoxaparin/Lovenox 30 mg SQ BID (WT < 150 kg, CrCl > 30 mL/min) AND/OR *Sequential Compression Device (SCD) 5 or more Highest Order ONE of the following medications: *Heparin 5000 units SQ TID (Preferred with Epidurals) *Enoxaparin/Lovenox 40 mg SQ daily (WT < 150 kg, CrCl > 30 mL/min) *Enoxaparin/Lovenox 30 mg SQ daily (WT < 150 kg, CrCl > 10-29 mL/min) *Enoxaparin/Lovenox 30 mg SQ BID (WT < 150 kg, CrCl > 30 mL/min) AND *Sequential Compression Device (SCD) <Dorian Lambert - 01/29/18 19:20> Assessment and Plan - Assessment (1) Partial small bowel obstruction Code(s): K56.600 - Partial intestinal obstruction, unspecified as to cause Status: Acute (2) Acute Crohn's disease Code(s): K50.90 - Crohn's disease, unspecified, without complications Status: Acute (3) Abdominal pain Code(s): R10.9 - Unspecified abdominal pain Status: Acute (4) Nutrition, metabolism, and development symptoms Code(s): R63.8 - Other symptoms and signs concerning food and fluid intake Status: Acute <Dorian Lambert - 01/29/18 19:20> (1) Partial small bowel obstruction Code(s): K56.600 - Partial intestinal obstruction, unspecified as to cause Status: Acute (2) Acute Crohn's disease Code(s): K50.90 - Crohn's disease, unspecified, without complications Status: Acute (3) Abdominal pain Code(s): R10.9 - Unspecified abdominal pain Status: Acute (4) Nutrition, metabolism, and development symptoms Code(s): R63.8 - Other symptoms and signs concerning food and fluid intake Status: Acute <Foster Williamson III - 01/29/18 18:49> - Assessment and Plan 32-year-old male with prior medical history of Crohn's disease status post partial bowel colectomy and re-anastomosis who presents with partial bowel obstruction at the site of the surgery and Crohn's flare including cutaneous manifestations. Patient has not taken medication for his Crohn's disease since March. Pt was previously on Remicade. Dr. Espinoza from colorectal surgery and GI have been consulted. Patient has been admitted inpatient. Impression: CBC within normal limits CMP within normal limits Lipase 73 UA negative for infection, no culture indicated Partial bowel obstruction -Colorectal surgery consulted--pt known to Dr Espinoza--appreciate recs -NPO -1L bolus NS IVF in ED -NS IVF @ 120mls/hr -Morphine 4 mg IV q3h -Zofran 4 mg IV q6h PRN nausea Crohn's flare -GI consulted--appreciate recs -Methylprednisolone 40 mg IV q12h per surgery FEN/GI/PPx: Fluids: as above Electrolytes: wnl, will monitor daily BMP Nutrition: NPO until bowel obstruction resolves GI: hold for now PPx: SCDs Tylenol 650 mg q6h fever Ibuprofen pain 1-2 Pt SDW Jose Manuel Lambert and Luiz <Foster Williamson III - 01/29/18 19:09> - Attending Attestation The exam, history, and the medical decision-making described in the above note were completed with the assistance of the resident physician. I reviewed and agree with the findings presented. I attest that I had a [id number] encounter with the patient on the same day, and personally performed and documented my assessment and findings in the medical record. 32 yo M admitted today with crohns exacerbation. (n/v/fever and abdominal pain). he has a known hx of crohns, treated by Dr Goodwin with pentasa, and jose guadalupe, he was also seen by Dr Espinoza and had a partial right colectomy for an obstructive lesion about 10 years ago. he has been somewhat lost to follow up and has not seen his GI for almost 2 years now. They were kind of hoping that it was better. CT in ed shows partial SBO and chrohn's flare around previous anastomosis site. his surgeon was consulted from ED but GI not consulted. He is admitted, treating SBO conservatively with IVF and NG. Restarting old pentasa and possibly IV steroids but would like recommendations from surg/GI first as this is complicated by SBO may increase risk for perforation. explained importance of continuing maintenance medications after this. <Dorian Lambert - 01/29/18 19:20>
[2018-01-29] MEDS ORDERED: Naloxone Inj 0.4 MG/ML Vial IV.PUSH PRN (12:19)
[2018-01-29] MEDS ORDERED: Ibuprofen 400 MG Tablet PO PRN (12:19)
[2018-01-29] MEDS ORDERED: Acetaminophen 325 MG Tablet PO PRN (12:19)
[2018-01-29] MEDS ORDERED: Morphine Inj 4 MG/ML Vial IV.PUSH PRN (12:19)
[2018-01-29] MEDS ORDERED: Morphine Sulfate Inj 2 MG/ML Vial IV.PUSH PRN (12:19)
[2018-01-29] MEDS: Sod Chloride 0.9% Inj 1,000 ML IV.CONT SCH ×2 (16:12→22:55)
[2018-01-29] MEDS: MethylPREDNISolone Sod Succinate Inj 40 MG/ML Vial IV.PUSH SCH (17:57)
[2018-01-29] MEDS: Morphine Inj 4 MG/ML Vial IV.PUSH PRN ×2 (17:57→21:20)
--- NOTE | 2018-01-29 18:47 | MB ---
cc: Rolan Espinoza MD,Ty Dee,Susy NOEL DATE: 01/29/2018 CHIEF COMPLAINT: Abdominal pain, nausea, vomiting. HISTORY OF PRESENT ILLNESS: This patient is known to me. In October 2006, he was in the hospital with nearly obstructing Crohn disease of the terminal ileum. 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 At that time, in October 2006, he underwent a limited right colectomy with excision of the terminal ileum of about 6 inches of Crohn disease. An ileocolic anastomosis was done in the hepatic flexure region. Since that time, he followed up with me for a short time and then followed with gastroenterology, specifically Dr. Barron, who is now retired, and then ultimately with Dr. Goodwin. He followed with Dr. Goodwin off and on for years, was intermittently on prednisone and Pentasa, as well as Humira. The patient stopped the Humira a couple of years ago when he lost his insurance. He did have Medicaid in the past, but has no insurance at this time. He stopped his prednisone in March 2017 and has not seen Dr. Goodwin for some months. The patient says that over the last 3 days he developed nausea and some vomiting, and then had diarrhea up to that point, but bowel motions stopped last night. He became more bloated, developed abdominal discomfort. Prior to that time, he says he felt okay. He says he has no other major medical problems, has had no other surgery since I saw him 11 years ago, and lives in the [place] area with his and 8 children. PAST MEDICAL HISTORY: Negative, as above. FAMILY HISTORY: Negative, as above. SOCIAL HISTORY: Negative, as above. REVIEW OF SYSTEMS: Negative, as above. PHYSICAL EXAMINATION: GENERAL: A well-developed, thin male in no acute distress at this time. SKIN: Warm and dry. HEENT: Extraocular muscles intact. NECK: Supple. ABDOMEN: Mildly distended, soft, mildly tympanitic and mildly tender throughout based on the distention. No peritoneal signs. He has a transverse infraumbilical skin incision from my previous surgery 11 years ago. RECTAL: Exam was not done. EXTREMITIES: Range of motion within normal limits. NEUROLOGIC: Grossly normal. LABORATORY DATA: The CT scan done on admission shows mildly dilated small bowel proximal to his ileocolonic anastomosis. He has inflammatory changes and bowel thickening at the anastomosis suggestive of Crohn disease recurrence. No abscesses or fistulas are seen. There is no distention of the colon. IMPRESSION: Partial small-bowel obstruction due to Crohn disease of the terminal ileum. This is a recurrence from 11 years ago. The patient has apparently had intermittent recurrences, has been on Crohn medications through the years off and on, but presently is not on any medications. He developed these symptoms over the last 3 days. His last colonoscopy was done by Dr. Goodwin about 3 years ago, in 2014. He had ulceration of his terminal ileum and ileocolonic anastomosis at that time and the biopsies showed active Crohn disease. PLAN: I would recommend no endoscopy at this time as the patient cannot be prepped anyway and he is partially obstructed. I would recommend at first conservative therapy, keep him n.p.o. and start methylprednisolone IV along with some Pentasa. He probably really needs to be back on biologics. I am not sure if it is going to be possible without insurance. I am going to consult Dr. Goodwin and ask for his suggestions. If he will not clear with conservative therapy, he may need resection once again, but the long-term solution for this patient clearly is compliance with his medications. I discussed this with the patient and his family. They understand. I will consult Dr. Goodwin's service and follow along with you. Rolan Espinoza MD JSIXTO/júnior , 05:04 PM , 05:24 PM
[2018-01-29] MEDS: Mesalamine 250 MG Capsule ER PO SCH ×2 (20:16→21:07)
[2018-01-30] MEDS: Sod Chloride 0.9% Inj 1,000 ML IV.CONT SCH ×5 (01:55→20:54)
[2018-01-30] MEDS: MethylPREDNISolone Sod Succinate Inj 40 MG/ML Vial IV.PUSH SCH ×2 (06:37→17:28)
[2018-01-30 07:13] LABS: Baso % (Auto) 0.1 % (0.0-2.0); Hematocrit 42.7 % (39.0-51.0); Hemoglobin 14.7 gm/dL (13.0-17.0); Lymph % (Auto) 14.1 % (9.0-44.0); Mean Corpuscular HGB Conc 34.5 % (32.0-36.0); Mean Corpuscular Hemoglobin 29.3 pg (27.0-34.0); Mean Corpuscular Volume 84.9 fL (80.0-100.0); Mean Platelet Volume 7.6 fL (7.0-11.0); Mono # (Auto) 0.4 th/mm3 (0.0-0.9); Mono % (Auto) 5.6 % (0.0-8.0); Neut # (Auto) 5.5 th/mm3 (1.8-7.7); Neut % (Auto) 80.2 % (16.0-70.0); Platelet Count 321 th/mm3 (150-450); Red Blood Count 5.03 mil/mm3 (4.50-5.90); White Blood Count 6.8 th/mm3 (4.0-11.0)
[2018-01-30 07:36] LABS: Albumin 3.4 g/dL (3.4-5.0); Anion Gap 10 meq/L (5-15); Aspartate Aminotransferase 18 U/L (15-37); Blood Urea Nitrogen 14 mg/dL (7-18); Calcium 8.7 mg/dL (8.5-10.1); Carbon Dioxide 27.2 meq/L (21.0-32.0); Chloride 106 meq/L (98-107); Glomerular Filtration Rate 86 mL/min (>89); Glucose,Random 100 mg/dL (74-106); Potassium 4.3 meq/L (3.5-5.1); Sodium 143 meq/L (136-145)
[2018-01-30 07:40] LABS: Alanine Aminotransferase 21 U/L (12-78); Alkaline Phosphatase 71 U/L (45-117); Total Protein 7.9 g/dL (6.4-8.2)
--- NOTE | 2018-01-30 09:12 | P.PNCS ---
Subjective Interval history: No vomiting. Small BM with shower this AM. Passing gas.Pain stable Objective Result Diagrams: 01/30/18 06:38 01/30/18 06:38 Objective Remarks: Abd: soft,mildly tender. Not very distended Assessment and Plan - Plan Crohns Ileitis with partial SBO. Medical therapy. Await GI recommendations.
[2018-01-30] MEDS: Mesalamine 250 MG Capsule ER PO SCH ×4 (09:14→20:51)
--- NOTE | 2018-01-30 12:38 | P.CONGI ---
History of Present Illness Consult date: 01/30/18 Consult reason: Recurrent Crohn's disease and ileitis Chief complaint: Partial small bowel obstruction, Crohn's abdominal History of Present Illness: This is a pleasant 32-year-old black male who came to the hospital on 2017 with lower abdominal pain and right upper quadrant generalized abdominal pain off and on for the past 3 days. Patient also noted fever approximately 5 days before admission and had symptoms of decreased appetite with some nausea vomiting and dizziness. Patient was diagnosed with Crohn's disease approximately 11 years ago and is been followed per Dr. Goodwin. Patient had a change in his work and insurance status approximately 2 years ago and he ran out of his CS Disco approximately 1 year ago. She also notes history of Remicade use before CS Disco. EGD colonoscopy approximately 1-1/[address] Goodwin. No family history of colon cancer. Patient has been on prednisone 2 tablets daily unknown dose for the past year and had done well until symptoms flared within the past week. Current hemoglobin 14.7 WBC count 6.8 bilirubin and LFTs are normal it is noted in the record the patient had small bowel obstruction in the past secondary to his Crohn's disease patient denies any obvious rectal bleeding or hematemesis he is alert oriented and a fairly good historian. Gastroenterology has been consulted to assist with his care he has also been seen per Dr. Espinoza during this admission <Lilliana Stevenson - Last Filed: 01/30/18 12:39> Review of Systems All other systems reviewed negative except as stated in HPI <Lilliana Stevenson - Last Filed: 01/30/18 12:39> PMFSH - History History Provided By: Patient, Significant Other - Medical History Medical History: Medical History (Last Reviewed 01/29/18 @ 09:15 by Kya Yan MD) Crohns disease - Surgical History Surgical History: Surgical History (Last Reviewed 01/29/18 @ 09:15 by Kya Yan MD) H/O resection of small bowel - Tobacco History Second Hand Smoke Exposure: No Smoking Status: Never smoker - Alcohol History How Often Do You Have a Drink Containing Alcohol: Never - Substance Use History Substance History: No History of Abuse - Travel History Recent Travel in the [place] Within the Last 8 Weeks: No Recent Travel Out of the Country Within the Last 8 Weeks: No - Immunization History Tetanus Immunization: <5 Years <Lilliana Stevenson - Last Filed: 01/30/18 12:39> - Medical History Medical History: Medical History (Last Reviewed 01/29/18 @ 09:15 by Kya Yan MD) Crohns disease - Surgical History Surgical History: Surgical History (Last Reviewed 01/29/18 @ 09:15 by Kya Yan MD) H/O resection of small bowel <Estela Schulteromán - Last Filed: 01/30/18 20:26> Medications and Allergies Active Medications: Active Medications Acetaminophen (Tylenol) 650 mg PO Q4H PRN PRN Reason: Temp > 100.4 Sodium Chloride (Ns Inj) 1,000 mls @ 120 mls/hr IV.CONT .Q8H20M [facility] Last Admin: 01/30/18 09:16 Dose: 120 mls/hr Ibuprofen (Motrin) 400 mg PO Q6HR PRN PRN Reason: PAIN SCALE 1 TO 2 Mesalamine (Pentasa Sr) 1,000 mg PO QID [facility] Last Admin: 01/30/18 09:14 Dose: 1,000 mg Methylprednisolone Sodium Succinate (Solumedrol Inj) 40 mg IV.PUSH Q12H [facility] Last Admin: 01/30/18 06:37 Dose: 40 mg Morphine Sulfate (Morphine Inj) 2 mg IV.PUSH Q3H PRN PRN Reason: PAIN 3-5; IF UABLE TO TAKE PO Morphine Sulfate (Morphine Inj) 4 mg IV.PUSH Q3H PRN PRN Reason: PAIN 6-10;IF UNABLE TO TAKE PO Last Admin: 01/29/18 21:20 Dose: 4 mg Morphine Sulfate (Morphine Inj) 4 mg IV.PUSH Q3H PRN PRN Reason: BREAKTHROUGH PAIN Naloxone HCl (Narcan Inj) 0.4 mg IV.PUSH UNSCH PRN PRN Reason: SEE LABEL COMMENTS Ondansetron HCl (Zofran Inj) 4 mg IV.PUSH Q6H PRN PRN Reason: NAUSEA OR VOMITING Sodium Chloride (Ns Flush) 2 ml IV.FLUSH PRN PRN PRN Reason: FLUSH AFTER USING IV ACCESS <Lilliana Stevenson - Last Filed: 01/30/18 12:39> Active Medications: Active Medications Acetaminophen (Tylenol) 650 mg PO Q4H PRN PRN Reason: Temp > 100.4 Dicyclomine HCl (Bentyl) 20 mg PO TID PRN PRN Reason: ABDOMINAL PAIN Sodium Chloride (Ns Inj) 1,000 mls @ 120 mls/hr IV.CONT .Q8H20M [facility] Last Admin: 01/30/18 17:29 Dose: 120 mls/hr Ibuprofen (Motrin) 400 mg PO Q6HR PRN PRN Reason: PAIN SCALE 1 TO 2 Mesalamine (Pentasa Sr) 1,000 mg PO QID [facility] Last Admin: 01/30/18 17:28 Dose: 1,000 mg Methylprednisolone Sodium Succinate (Solumedrol Inj) 40 mg IV.PUSH Q12H [facility] Last Admin: 01/30/18 17:28 Dose: 40 mg Morphine Sulfate (Morphine Inj) 2 mg IV.PUSH Q3H PRN PRN Reason: PAIN 3-5; IF UABLE TO TAKE PO Morphine Sulfate (Morphine Inj) 4 mg IV.PUSH Q3H PRN PRN Reason: PAIN 6-10;IF UNABLE TO TAKE PO Last Admin: 01/30/18 17:29 Dose: 4 mg Morphine Sulfate (Morphine Inj) 4 mg IV.PUSH Q3H PRN PRN Reason: BREAKTHROUGH PAIN Naloxone HCl (Narcan Inj) 0.4 mg IV.PUSH UNSCH PRN PRN Reason: SEE LABEL COMMENTS Ondansetron HCl (Zofran Inj) 4 mg IV.PUSH Q6H PRN PRN Reason: NAUSEA OR VOMITING Sodium Chloride (Ns Flush) 2 ml IV.FLUSH PRN PRN PRN Reason: FLUSH AFTER USING IV ACCESS <Eduar Schulte - Last Filed: 01/30/18 20:26> Allergies Allergy/AdvReac Type Severity Reaction Status Date / Time No Known Allergies Allergy Verified 01/29/18 09:04 Home Medications Medication Instructions Recorded Confirmed Type No Known Home Medications 01/29/18 01/29/18 History Exam Vital signs: Vital Signs 01/29/18 13:11 01/29/18 16:00 01/29/18 20:00 Temperature 97.7 F 97.4 F L 98 F Pulse Rate 68 72 71 Respiratory Rate 16 18 13 Blood Pressure 111/54 L 108/57 L 98/62 L Pulse Oximetry 97 97 01/29/18 21:15 01/30/18 00:00 01/30/18 04:00 Temperature 96.6 F L 96 F L Pulse Rate 61 72 69 Respiratory Rate 15 14 Blood Pressure 102/55 L 99/53 L 97/52 L Pulse Oximetry 97 97 01/30/18 08:00 01/30/18 12:00 Temperature 97.1 F L 97.7 F Pulse Rate 57 L 66 Respiratory Rate 16 18 Blood Pressure 96/53 L 95/53 L Pulse Oximetry 97 99 Intake & Output 01/29/18 01/30/18 01/30/18 18:59 06:59 18:59 Intake Total 1000 / 1000 1000 / 1000 793 / 793 Balance 1000 / 1000 1000 / 1000 793 / 793 Weight 78.925 kg 79.5 kg Intake: IV 1000 / 1000 1000 / 1000 793 / 793 NS Inj 1,000 ML @ 120 mls/hr IV 1000 / 1000 793 / 793 .CONT .Q8H20M [facility] Rx#:[id number] NS Inj 1,000 ML @ 1000 mls/hr 1000 / 1000 IV.SIG BOLUS [facility] Rx#:[id number] Other: # Voids 2 2 Date of Last Bowel Movement 01/28/18 01/30/18 # Bowel Movements 1 1 - Constitutional mild distress, average body habitus, cooperative - Routine HEENT Exam Head: Present: normocephalic, atraumatic ENT: Present: mucous membranes dry - Routine Neck Exam Present: supple - Routine Respiratory Exam Present: CTA bilaterally - Routine Cardiovascular Exam Present: S1, S2 - Routine Abdominal Exam Present: soft (, Soft active bowel sounds, lower abdominal tenderness mid upper and right upper quadrant tenderness generalized) - Routine Neurological Exam Present: alert <Bealeton,Lilliana M - Last Filed: 01/30/18 12:39> Vital signs: Vital Signs 01/29/18 21:15 01/30/18 00:00 01/30/18 04:00 Temperature 96.6 F L 96 F L Pulse Rate 61 72 69 Respiratory Rate 15 14 Blood Pressure 102/55 L 99/53 L 97/52 L Pulse Oximetry 97 97 01/30/18 08:00 01/30/18 12:00 01/30/18 16:00 Temperature 97.1 F L 97.7 F 97.8 F Pulse Rate 57 L 66 72 Respiratory Rate 16 18 18 Blood Pressure 96/53 L 95/53 L 112/55 L Pulse Oximetry 97 99 99 Intake & Output 01/30/18 01/30/18 01/31/18 06:59 18:59 06:59 Intake Total 1000 / 1000 177 / 1776 Output Total 700 / 700 Balance 1000 / 1000 1076 / 1076 Weight 79.5 kg Intake: IV 1000 / 1000 1775 / 1776 NS Inj 1,000 ML @ 120 mls/hr IV 1000 / 1000 177 / 1776 .CONT .Q8H20M [facility] Rx#:[id number] Oral 0 / 0 Output: Urine 700 / 700 Other: # Voids 2 Date of Last Bowel Movement 01/28/18 01/30/18 # Bowel Movements 1 <Eduar Schulte - Last Filed: 01/30/18 20:26> Results - Labs CBC & Chem 7: 01/30/18 06:38 01/30/18 06:38 Labs: Laboratory Results - last 24 hr 01/30/18 01/30/18 06:38 06:38 WBC 6.8 RBC 5.03 Hgb 14.7 Hct 42.7 MCV 84.9 MCH 29.3 MCHC 34.5 RDW 14.0 Plt Count 321 MPV 7.6 Neut % (Auto) 80.2 H Lymph % (Auto) 14.1 [place] % (Auto) 5.6 Eos % (Auto) 0.0 Baso % (Auto) 0.1 Neut # (Auto) 5.5 Lymph # (Auto) 1.0 [place] # (Auto) 0.4 Eos # (Auto) 0.0 Baso # (Auto) 0.0 WBC Differential . Differential Comment Auto diff final Sodium 143 Potassium 4.3 Chloride 106 Carbon Dioxide 27.2 Anion Gap 10 BUN 14 Creatinine 1.19 Estimated GFR 86 L Random Glucose 100 Calcium 8.7 Total Bilirubin 0.7 AST 18 ALT 21 Alkaline Phosphatase 71 Total Protein 7.9 Albumin 3.4 <Lilliana Stevenson - Last Filed: 01/30/18 12:39> - Labs CBC & Chem 7: 01/30/18 06:38 01/30/18 06:38 Labs: Laboratory Results - last 24 hr 01/30/18 01/30/18 06:38 06:38 WBC 6.8 RBC 5.03 Hgb 14.7 Hct 42.7 MCV 84.9 MCH 29.3 MCHC 34.5 RDW 14.0 Plt Count 321 MPV 7.6 Neut % (Auto) 80.2 H Lymph % (Auto) 14.1 [place] % (Auto) 5.6 Eos % (Auto) 0.0 Baso % (Auto) 0.1 Neut # (Auto) 5.5 Lymph # (Auto) 1.0 [place] # (Auto) 0.4 Eos # (Auto) 0.0 Baso # (Auto) 0.0 WBC Differential . Differential Comment Auto diff final Sodium 143 Potassium 4.3 Chloride 106 Carbon Dioxide 27.2 Anion Gap 10 BUN 14 Creatinine 1.19 Estimated GFR 86 L Random Glucose 100 Calcium 8.7 Total Bilirubin 0.7 AST 18 ALT 21 Alkaline Phosphatase 71 Total Protein 7.9 Albumin 3.4 <SoniamariiaEduar - Last Filed: 01/30/18 20:26> Assessment and Plan - Plan 32-year-old black male who came to the hospital on 01/29/2018 with lower abdominal pain and right upper quadrant generalized abdominal pain off and on for the past 3 days. Patient also noted fever approximately 5 days before admission and had symptoms of decreased appetite with some nausea vomiting and dizziness. Patient was diagnosed with Crohn's disease approximately 11 years ago and is been followed per Dr. Goodwin. Patient had a change in his work and insurance status approximately 2 years ago and he ran out of his CS Disco approximately 1 year ago. She also notes history of Remicade use before CS Disco. EGD colonoscopy approximately 1-1/[address] Goodwin. No family history of colon cancer. Patient has been on prednisone 2 tablets daily unknown dose for the past year and had done well until symptoms flared within the past week. Current hemoglobin 14.7 WBC count 6.8 bilirubin and LFTs are normal it is noted in the record the patient had small bowel obstruction in the past secondary to his Crohn's disease patient denies any obvious rectal bleeding or hematemesis he is alert oriented and a fairly good historian. Gastroenterology has been consulted to assist with his care he has also been seen per Dr. Espinoza during this admission Crohn's and ileitis exacerbation Lower abdominal pain and generalized upper abdominal discomfort over the past 3- 4 days associated with some nausea vomiting and dizziness and creased appetite. Low-grade fever approximately 5 days ago No current procedures for now Plan Diet Monitor labs with special attention to any drop in his hemoglobin IV fluids for hydration Solu-Medrol 40 mg IV every 12 Mesalamine 1000 mg p.o. 4 times daily Bentyl as needed for abdominal pain and cramping Pain management per attending Case management to evaluate assistance program with Yossi Further recommendations to follow Supportive care Patient was seen per myself and Dr. Schulte, note was written on his behalf <Lilliana Stevenson - Last Filed: 01/30/18 12:39> - Plan Agree with above note and plan, patient will need colonoscopy at some point, we will see if there is another alternative medication or clinical trial that we can enroll the patient with, meanwhile we will continue current medication we will do steroid taper <Eduar Schulte - Last Filed: 01/30/18 20:26>
--- NOTE | 2018-01-30 13:48 | P.PNFP ---
Subjective Interval history: No acute events overnight. Patient seen and examined this AM. Remains afebrile, vitals stable. Patient reports his abdominal pain has improved. Reports having a BM this morning and passing flatus. His reports he has baseline low blood pressures. Denies fevers or chest pain. <Homa Baldwinsh - 01/30/18 13:48> Results - Labs Result diagrams: 01/30/18 06:38 01/30/18 06:38 <Dorian Lambert - 01/30/18 17:34> Abnormal lab results 01/30/18 01/30/18 Range/Units 06:38 06:38 Neut % (Auto) 80.2 H (16.0-70.0) % Estimated GFR 86 L (>89) mL/min Short CBC 01/30/18 Range/Units 06:38 WBC 6.8 (4.0-11.0) th/mm3 Hgb 14.7 (13.0-17.0) gm/dL Hct 42.7 (39.0-51.0) % Plt Count 321 (150-450) th/mm3 [facility] 01/30/18 06:38 Sodium 143 Potassium 4.3 Chloride 106 Carbon Dioxide 27.2 BUN 14 Creatinine 1.19 Calcium 8.7 Liver Function 01/30/18 Range/Units 06:38 Total Bilirubin 0.7 (0.2-1.0) mg/dL AST 18 (15-37) U/L ALT 21 (12-78) U/L Alkaline Phosphatase 71 (45-117) U/L Albumin 3.4 (3.4-5.0) g/dL <Dorian Lambert - 01/30/18 17:34> Abnormal lab results 01/30/18 01/30/18 Range/Units 06:38 06:38 Neut % (Auto) 80.2 H (16.0-70.0) % Estimated GFR 86 L (>89) mL/min Short CBC 01/30/18 Range/Units 06:38 WBC 6.8 (4.0-11.0) th/mm3 Hgb 14.7 (13.0-17.0) gm/dL Hct 42.7 (39.0-51.0) % Plt Count 321 (150-450) th/mm3 [facility] 01/30/18 06:38 Sodium 143 Potassium 4.3 Chloride 106 Carbon Dioxide 27.2 BUN 14 Creatinine 1.19 Calcium 8.7 Liver Function 01/30/18 Range/Units 06:38 Total Bilirubin 0.7 (0.2-1.0) mg/dL AST 18 (15-37) U/L ALT 21 (12-78) U/L Alkaline Phosphatase 71 (45-117) U/L Albumin 3.4 (3.4-5.0) g/dL <Ez Baldwin - 01/30/18 13:48> Physical Exam Vital signs: Vital Signs 01/29/18 20:00 01/29/18 21:15 01/30/18 00:00 Temperature 98 F 96.6 F L Pulse Rate 71 61 72 Respiratory Rate 13 15 Blood Pressure 98/62 L 102/55 L 99/53 L Pulse Oximetry 97 97 01/30/18 04:00 01/30/18 08:00 01/30/18 12:00 Temperature 96 F L 97.1 F L 97.7 F Pulse Rate 69 57 L 66 Respiratory Rate 14 16 18 Blood Pressure 97/52 L 96/53 L 95/53 L Pulse Oximetry 97 97 99 01/30/18 16:00 Temperature 97.8 F Pulse Rate 72 Respiratory Rate 18 Blood Pressure 112/55 L Pulse Oximetry 99 Intake & Output 01/29/18 01/30/18 01/30/18 18:59 06:59 18:59 Intake Total 1000 / 1000 1000 / 1000 793 / 793 Balance 1000 / 1000 1000 / 1000 793 / 793 Weight 78.925 kg 79.5 kg Intake: IV 1000 / 1000 1000 / 1000 793 / 793 NS Inj 1,000 ML @ 120 mls/hr IV 1000 / 1000 793 / 793 .CONT .Q8H20M REPLACED BY [facility] Rx#:[id number] NS Inj 1,000 ML @ 1000 mls/hr 1000 / 1000 IV.SIG BOLUS REPLACED BY [facility] Rx#:[id number] Other: # Voids 2 2 Date of Last Bowel Movement 01/28/18 01/30/18 # Bowel Movements 1 1 <Dorian Lambert - 01/30/18 17:34> Vital Signs 01/29/18 16:00 01/29/18 20:00 01/29/18 21:15 Temperature 97.4 F L 98 F Pulse Rate 72 71 61 Respiratory Rate 18 13 Blood Pressure 108/57 L 98/62 L 102/55 L Pulse Oximetry 97 97 01/30/18 00:00 01/30/18 04:00 01/30/18 08:00 Temperature 96.6 F L 96 F L 97.1 F L Pulse Rate 72 69 57 L Respiratory Rate 15 14 16 Blood Pressure 99/53 L 97/52 L 96/53 L Pulse Oximetry 97 97 97 01/30/18 12:00 Temperature 97.7 F Pulse Rate 66 Respiratory Rate 18 Blood Pressure 95/53 L Pulse Oximetry 99 Intake & Output 01/29/18 01/30/18 01/30/18 18:59 06:59 18:59 Intake Total 1000 / 1000 1000 / 1000 793 / 793 Balance 1000 / 1000 1000 / 1000 793 / 793 Weight 78.925 kg 79.5 kg Intake: IV 1000 / 1000 1000 / 1000 793 / 793 NS Inj 1,000 ML @ 120 mls/hr IV 1000 / 1000 793 / 793 .CONT .Q8H20M [facility] Rx#:[id number] NS Inj 1,000 ML @ 1000 mls/hr 1000 / 1000 IV.SIG BOLUS [facility] Rx#:[id number] Other: # Voids 2 2 Date of Last Bowel Movement 01/28/18 01/30/18 # Bowel Movements 1 1 <DevinEz mckenna - 01/30/18 13:48> Narrative: GENERAL: Lying in bed in NAD, very pleasant SKIN: Warm and dry. HEAD: Normocephalic. Atraumatic. EYES: No scleral icterus. No injection or drainage. EOMI. NECK: Supple, trachea midline. No JVD or lymphadenopathy. CARDIOVASCULAR: Regular rate and rhythm without murmurs, gallops, or rubs. RESPIRATORY: Breath sounds equal bilaterally. No accessory muscle use. GASTROINTESTINAL: Abdomen soft, nontender, nondistended, no guarding or rebound tenderness. There is a uniform band about 1 cm in width that extends transversely across the abdomen just below the umbilicus. No guarding or rebound. MUSCULOSKELETAL: No cyanosis, or edema. BACK: Nontender without obvious deformity. No CVA tenderness. <DevinEz mckenna - 01/30/18 13:48> Assessment and Plan - Assessment (1) Partial small bowel obstruction Code(s): K56.600 - Partial intestinal obstruction, unspecified as to cause Status: Acute (2) Acute Crohn's disease Code(s): K50.90 - Crohn's disease, unspecified, without complications Status: Acute (3) Abdominal pain Code(s): R10.9 - Unspecified abdominal pain Status: Acute (4) Nutrition, metabolism, and development symptoms Code(s): R63.8 - Other symptoms and signs concerning food and fluid intake Status: Acute <Dorian Lambert Rafia - 01/30/18 17:34> (1) Partial small bowel obstruction Code(s): K56.600 - Partial intestinal obstruction, unspecified as to cause Status: Acute (2) Acute Crohn's disease Code(s): K50.90 - Crohn's disease, unspecified, without complications Status: Acute (3) Abdominal pain Code(s): R10.9 - Unspecified abdominal pain Status: Acute (4) Nutrition, metabolism, and development symptoms Code(s): R63.8 - Other symptoms and signs concerning food and fluid intake Status: Acute <Ez Baldwin - 01/30/18 13:34> - Assessment and Plan 32-year-old male with prior medical history of Crohn's disease status post partial bowel colectomy and re-anastomosis who presented with a partial bowel obstruction at the site of the surgery and Crohn's flare including cutaneous manifestations. Patient has not taken medication for his Crohn's disease since March. Pt was previously on Remicade. Partial bowel obstruction -Colorectal surgery consulted, patient known to Dr Espinoza, appreciate recommendations -Abdominal pain is improving since admission, +BM this AM -NPO for now, diet per GI recs -Continue NS at 120 cc/hr -Morphine 4 mg IV q3h as needed -Zofran 4 mg IV q6h prn nausea Crohn's flare -GI consulted, appreciate recs -Continue Methylprednisolone 40 mg IV q12h -Started on mesalamine 1000mg po qid per GI Fluids: as above Electrolytes: continue to monitor Nutrition: NPO until bowel obstruction resolves DVT ppx: b/l SCDs Dispo: Anticipate discharge home in 1-2 days pending further clinical improvement, CM consulted to help with an assistance program to cover Yossi as an outpatient <Ez Baldwin - 01/30/18 13:48> - Attending Attestation The exam, history, and the medical decision-making described in the above note were completed with the assistance of the resident physician. I reviewed and agree with the findings presented. I attest that I had a [id number] encounter with the patient on the same day, and personally performed and documented my assessment and findings in the medical record. agree with above with the exception of still some llq tenderness on my exam but significantly improved from yesterday. SBO appears to have resolved or at least mostly with passing of BM today. No NG tube now. Seen by GI, still on IV steroids and mesalamine. CM working on humira. Tomorrow will try to advance diet more hopefully and transition to PO pain control if ok with consultants. <Dorian Lambert - 01/30/18 17:34>
[2018-01-30] MEDS: Morphine Inj 4 MG/ML Vial IV.PUSH PRN ×2 (17:29→23:00)
[2018-01-31] MEDS: Sod Chloride 0.9% Inj 1,000 ML IV.CONT SCH ×4 (03:20→17:46)
[2018-01-31] MEDS: MethylPREDNISolone Sod Succinate Inj 40 MG/ML Vial IV.PUSH SCH (06:10)
[2018-01-31 08:37] LABS: Baso % (Auto) 0.1 % (0.0-2.0); Hematocrit 35.2 % (39.0-51.0); Lymph # (Auto) 1.2 th/mm3 (1.0-4.8); Mean Corpuscular HGB Conc 34.2 % (32.0-36.0); Mean Corpuscular Hemoglobin 28.8 pg (27.0-34.0); Mean Corpuscular Volume 84.3 fL (80.0-100.0); Mono # (Auto) 0.7 th/mm3 (0.0-0.9); Mono % (Auto) 9.2 % (0.0-8.0); Neut # (Auto) 5.4 th/mm3 (1.8-7.7); Neut % (Auto) 73.7 % (16.0-70.0); Platelet Count 235 th/mm3 (150-450); Red Blood Count 4.17 mil/mm3 (4.50-5.90); Red Cell Distribution Width 13.9 % (11.6-17.2); White Blood Count 7.3 th/mm3 (4.0-11.0)
[2018-01-31 08:55] LABS: Anion Gap 7 meq/L (5-15); Blood Urea Nitrogen 14 mg/dL (7-18); Calcium 8.2 mg/dL (8.5-10.1); Carbon Dioxide 27.5 meq/L (21.0-32.0); Chloride 110 meq/L (98-107); Glomerular Filtration Rate Greater Than 89 mL/min (>89); Glucose,Random 86 mg/dL (74-106); Potassium 3.9 meq/L (3.5-5.1); Sodium 144 meq/L (136-145)
--- NOTE | 2018-01-31 09:05 | P.PNFP ---
Subjective Interval history: Patient seen and examined at bedside this morning. He had no acute events overnight. He had another bowel movement this morning. He is passing gas. He denies abdominal pain, chest pain, shortness of breath, fevers , chills. He is hungry. I spoke with case management. They are working on [facility] patient assistance program. From my understanding, the paper work for this would take at least 5 days and the patient may not even be approved. The watch case polisher would also like other options for the patient to be sent out on. I contacted GI regarding the advancement of his diet and his outpatient medication plan. <Susy Dee - 01/31/18 09:25> Results - Labs Result diagrams: 01/31/18 06:42 01/31/18 06:42 <Dorian Lambert - 01/31/18 11:41> Abnormal lab results 01/31/18 01/31/18 Range/Units 06:42 06:42 RBC 4.17 L (4.50-5.90) mil/mm3 Hgb 12.0 L D (13.0-17.0) gm/dL Hct 35.2 L (39.0-51.0) % Neut % (Auto) 73.7 H (16.0-70.0) % [place] % (Auto) 9.2 H (0.0-8.0) % Chloride 110 H (98-107) meq/L Calcium 8.2 L (8.5-10.1) mg/dL Short CBC 01/31/18 Range/Units 06:42 WBC 7.3 (4.0-11.0) th/mm3 Hgb 12.0 L D (13.0-17.0) gm/dL Hct 35.2 L (39.0-51.0) % Plt Count 235 (150-450) th/mm3 BMP 01/31/18 06:42 Sodium 144 Potassium 3.9 Chloride 110 H Carbon Dioxide 27.5 BUN 14 Creatinine 0.86 Calcium 8.2 L <Dorian Lambert - 01/31/18 11:41> Abnormal lab results 01/31/18 01/31/18 Range/Units 06:42 06:42 RBC 4.17 L (4.50-5.90) mil/mm3 Hgb 12.0 L D (13.0-17.0) gm/dL Hct 35.2 L (39.0-51.0) % Neut % (Auto) 73.7 H (16.0-70.0) % [place] % (Auto) 9.2 H (0.0-8.0) % Chloride 110 H (98-107) meq/L Calcium 8.2 L (8.5-10.1) mg/dL Short CBC 01/31/18 Range/Units 06:42 WBC 7.3 (4.0-11.0) th/mm3 Hgb 12.0 L D (13.0-17.0) gm/dL Hct 35.2 L (39.0-51.0) % Plt Count 235 (150-450) th/mm3 BMP 01/31/18 06:42 Sodium 144 Potassium 3.9 Chloride 110 H Carbon Dioxide 27.5 BUN 14 Creatinine 0.86 Calcium 8.2 L <Susy Dee - 01/31/18 09:05> Physical Exam Vital signs: Vital Signs 01/30/18 12:00 01/30/18 16:00 01/30/18 20:00 Temperature 97.7 F 97.8 F 98.1 F Pulse Rate 66 72 76 Respiratory Rate 18 18 17 Blood Pressure 95/53 L 112/55 L 116/58 L Pulse Oximetry 99 99 98 01/31/18 00:00 01/31/18 07:21 01/31/18 08:00 Temperature 97.6 F 97.3 F L 97.9 F Pulse Rate 71 57 L 57 L Respiratory Rate 17 16 20 Blood Pressure 112/57 L 102/57 L 121/59 L Pulse Oximetry 98 99 96 Intake & Output 01/30/18 01/31/18 01/31/18 18:59 06:59 18:59 Intake Total 1776 / 1776 1480 / 1480 622 / 622 Output Total 700 / 700 1200 / 1200 Balance 1076 / 1076 280 / 280 622 / 622 Weight 79.5 kg Intake: IV 1776 / 1776 1000 / 1000 622 / 622 NS Inj 1,000 ML @ 120 mls/hr IV 1776 / 1776 1000 / 1000 622 / 622 .CONT .Q8H20M [facility] Rx#:[id number] Oral 0 / 0 480 / 480 Output: Urine 700 / 700 1200 / 1200 Other: Date of Last Bowel Movement 01/30/18 01/30/18 01/31/18 <Dorian Lambert - 01/31/18 11:41> Vital Signs 01/30/18 12:00 01/30/18 16:00 01/30/18 20:00 Temperature 97.7 F 97.8 F 98.1 F Pulse Rate 66 72 76 Respiratory Rate 18 18 17 Blood Pressure 95/53 L 112/55 L 116/58 L Pulse Oximetry 99 99 98 01/31/18 00:00 01/31/18 07:21 Temperature 97.6 F 97.3 F L Pulse Rate 71 57 L Respiratory Rate 17 16 Blood Pressure 112/57 L 102/57 L Pulse Oximetry 98 99 Intake & Output 01/30/18 01/31/18 01/31/18 18:59 06:59 18:59 Intake Total 1776 / 1776 1480 / 1480 Output Total 700 / 700 1200 / 1200 Balance 1076 / 1076 280 / 280 Weight 79.5 kg Intake: IV 1776 / 1776 1000 / 1000 NS Inj 1,000 ML @ 120 mls/hr IV 1776 / 1776 1000 / 1000 .CONT .Q8H20M [facility] Rx#:[id number] Oral 0 / 0 480 / 480 Output: Urine 700 / 700 1200 / 1200 Other: Date of Last Bowel Movement 01/30/18 01/30/18 <Susy Dee - 01/31/18 09:05> Narrative: GENERAL: sitting up in chair, very pleasant SKIN: Warm and dry. HEAD: Normocephalic. Atraumatic. EYES: No scleral icterus. No injection or drainage. EOMI. NECK: Supple, trachea midline. No JVD or lymphadenopathy. CARDIOVASCULAR: Regular rate and rhythm without murmurs, gallops, or rubs. RESPIRATORY: Breath sounds equal bilaterally. No accessory muscle use. GASTROINTESTINAL: Abdomen soft, nontender, nondistended, no guarding or rebound tenderness. There is a uniform band about 1 cm in width that extends transversely across the abdomen just below the umbilicus. No guarding or rebound. MUSCULOSKELETAL: No cyanosis, or edema. BACK: Nontender without obvious deformity. <Susy Dee - 01/31/18 09:25> Assessment and Plan - Assessment (1) Partial small bowel obstruction Code(s): K56.600 - Partial intestinal obstruction, unspecified as to cause Status: Acute (2) Acute Crohn's disease Code(s): K50.90 - Crohn's disease, unspecified, without complications Status: Acute (3) Abdominal pain Code(s): R10.9 - Unspecified abdominal pain Status: Acute (4) Nutrition, metabolism, and development symptoms Code(s): R63.8 - Other symptoms and signs concerning food and fluid intake Status: Acute <Dorian Lambert - 01/31/18 11:41> (1) Partial small bowel obstruction Code(s): K56.600 - Partial intestinal obstruction, unspecified as to cause Status: Acute (2) Acute Crohn's disease Code(s): K50.90 - Crohn's disease, unspecified, without complications Status: Acute (3) Abdominal pain Code(s): R10.9 - Unspecified abdominal pain Status: Acute (4) Nutrition, metabolism, and development symptoms Code(s): R63.8 - Other symptoms and signs concerning food and fluid intake Status: Acute <JesejaySusy Kym - 01/31/18 09:15> - Assessment and Plan 32-year-old male with prior medical history of Crohn's disease status post partial bowel colectomy and re-anastomosis who presented with a partial bowel obstruction at the site of the surgery and Crohn's flare including cutaneous manifestations. Patient has not taken medication for his Crohn's disease since March. Pt was previously on Remicade. Partial bowel obstruction -Colorectal surgery consulted, patient known to Dr Espinoza, appreciate recommendations -Abdominal pain is improving since admission, +BM this AM and yesterday -NPO for now, diet per GI recs -Continue NS at 120 cc/hr -Morphine 4 mg IV q3h as needed -Zofran 4 mg IV q6h prn nausea Crohn's flare -GI consulted, appreciate recs -Continue Methylprednisolone 40 mg IV q12h -Continue mesalamine 1000mg po qid per GI - Start bentyl 20 mg TID PRN for abdominal pain per GI Fluids: as above Electrolytes: continue to monitor Nutrition: NPO until I hear from GI on advancing diet DVT ppx: b/l SCDs Dispo: Anticipate discharge home in 1-2 days pending further clinical improvement, CM consulted to help with an assistance program to cover Humira as an outpatient <Susy Dee - 01/31/18 09:25> - Attending Attestation The exam, history, and the medical decision-making described in the above note were completed with the assistance of the resident physician. I reviewed and agree with the findings presented. I attest that I had a [id number] encounter with the patient on the same day, and personally performed and documented my assessment and findings in the medical record. Patient feeling better today, requiring minimal IV morphine. Will transition to PO pain control today only and advance diet at least to liquids. Will make sure we have plan for steroid taper as well while we are waiting on humira approval. Hgb did drop some today so will continue to trend. hopefully can leave in next day or two if tolerating diet and transitioned to orals with at least a plan for bridge to humira or other treatment <Dorian Lambert - 01/31/18 11:41>
[2018-01-31] MEDS: Mesalamine 250 MG Capsule ER PO SCH ×4 (09:19→20:54)
[2018-01-31] MEDS ORDERED: Naloxone Inj 0.4 MG/ML Vial IV.PUSH PRN (10:43)
[2018-01-31 15:44] LABS: Baso % (Auto) 0.1 % (0.0-2.0); Hematocrit 35.3 % (39.0-51.0); Hemoglobin 12.1 gm/dL (13.0-17.0); Lymph # (Auto) 0.6 th/mm3 (1.0-4.8); Lymph % (Auto) 7.4 % (9.0-44.0); Mean Corpuscular HGB Conc 34.3 % (32.0-36.0); Mean Corpuscular Volume 84.5 fL (80.0-100.0); Mean Platelet Volume 7.9 fL (7.0-11.0); Mono # (Auto) 0.5 th/mm3 (0.0-0.9); Mono % (Auto) 5.8 % (0.0-8.0); Neut # (Auto) 7.5 th/mm3 (1.8-7.7); Neut % (Auto) 86.7 % (16.0-70.0); Platelet Count 254 th/mm3 (150-450); Red Blood Count 4.18 mil/mm3 (4.50-5.90); Red Cell Distribution Width 13.5 % (11.6-17.2); White Blood Count 8.7 th/mm3 (4.0-11.0)
--- NOTE | 2018-01-31 16:44 | P.PNGI ---
Subjective Interval history: Patient sitting up in bed Reports tolerating clear liquid diet well Denies any nausea or vomiting States had one BM this morning, soft and brown without any noted bleeding <Ojseph,Julianna - Last Filed: 01/31/18 17:17> Physical Exam Vital signs: Vital Signs 01/30/18 20:00 01/31/18 00:00 01/31/18 07:21 Temperature 98.1 F 97.6 F 97.3 F L Pulse Rate 76 71 57 L Respiratory Rate 17 17 16 Blood Pressure 116/58 L 112/57 L 102/57 L Pulse Oximetry 98 98 99 01/31/18 08:00 01/31/18 12:00 01/31/18 16:00 Temperature 97.9 F 97.4 F L 97.4 F L Pulse Rate 57 L 55 L 55 L Respiratory Rate 20 20 20 Blood Pressure 121/59 L 121/67 121/67 Pulse Oximetry 96 98 98 Intake & Output 01/30/18 01/31/18 01/31/18 18:59 06:59 18:59 Intake Total 1776 / 1776 1480 / 1480 1102 / 1102 Output Total 700 / 700 1200 / 1200 Balance 1076 / 1076 280 / 280 1102 / 1102 Weight 79.5 kg Intake: IV 1776 / 1776 1000 / 1000 622 / 622 NS Inj 1,000 ML @ 120 mls/hr IV 1776 / 1776 1000 / 1000 622 / 622 .CONT .Q8H20M [facility] Rx#:[id number] Oral 0 / 0 480 / 480 480 / 480 Output: Urine 700 / 700 1200 / 1200 Other: Date of Last Bowel Movement 01/30/18 01/30/18 01/31/18 - Constitutional no acute distress - Routine HEENT Exam Head: Present: normocephalic - Routine Respiratory Exam Absent: accessory muscle use - Routine Cardiovascular Exam Present: RRR - Routine Abdominal Exam Present: soft, normoactive bowel sounds. Absent: tenderness, distended, guarding, firm - Routine Extremities Exam Absent: edema - Routine Skin Exam Present: dry, warm - Routine Neurological Exam Present: alert, oriented X3 <Joseph,Julianna - Last Filed: 01/31/18 17:17> Vital signs: Vital Signs 01/31/18 00:00 01/31/18 07:21 01/31/18 08:00 Temperature 97.6 F 97.3 F L 97.9 F Pulse Rate 71 57 L 57 L Respiratory Rate 17 16 20 Blood Pressure 112/57 L 102/57 L 121/59 L Pulse Oximetry 98 99 96 01/31/18 12:00 01/31/18 16:00 Temperature 97.4 F L 97.4 F L Pulse Rate 55 L 55 L Respiratory Rate 20 20 Blood Pressure 121/67 121/67 Pulse Oximetry 98 98 Intake & Output 01/31/18 01/31/18 02/01/18 06:59 18:59 06:59 Intake Total 1480 / 1480 2098 Output Total 1200 / 1200 Balance 280 / 280 2098 Weight 79.5 kg Intake: IV 1000 / 1000 1619 / 1619 NS Inj 1,000 ML @ 120 mls/hr IV 1000 / 1000 1619 / 1619 .CONT .Q8H20M [facility] Rx#:[id number] Oral 480 / 480 480 / 480 Output: Urine 1200 / 1200 Other: Date of Last Bowel Movement 01/30/18 01/31/18 <Eduar Schulte - Last Filed: 01/31/18 20:00> Results - Labs CBC & Chem 7: 01/31/18 14:54 01/31/18 06:42 Laboratory Results - last 24 hr 01/31/18 01/31/18 01/31/18 06:42 06:42 14:54 WBC 7.3 8.7 RBC 4.17 L 4.18 L Hgb 12.0 L D 12.1 L Hct 35.2 L 35.3 L MCV 84.3 84.5 MCH 28.8 29.0 MCHC 34.2 34.3 RDW 13.9 13.5 Plt Count 235 254 MPV 8.0 7.9 Neut % (Auto) 73.7 H 86.7 H Lymph % (Auto) 17.0 7.4 L [place] % (Auto) 9.2 H 5.8 Eos % (Auto) 0.0 0.0 Baso % (Auto) 0.1 0.1 Neut # (Auto) 5.4 7.5 Lymph # (Auto) 1.2 0.6 L [place] # (Auto) 0.7 0.5 Eos # (Auto) 0.0 0.0 Baso # (Auto) 0.0 0.0 WBC Differential . . Differential Comment Auto diff final Auto diff final Sodium 144 Potassium 3.9 Chloride 110 H Carbon Dioxide 27.5 Anion Gap 7 BUN 14 Creatinine 0.86 Estimated GFR Greater than 89 Random Glucose 86 Calcium 8.2 L <Julianna Joseph - Last Filed: 01/31/18 17:17> - Labs CBC & Chem 7: 01/31/18 14:54 01/31/18 06:42 Laboratory Results - last 24 hr 01/31/18 01/31/18 01/31/18 06:42 06:42 14:54 WBC 7.3 8.7 RBC 4.17 L 4.18 L Hgb 12.0 L D 12.1 L Hct 35.2 L 35.3 L MCV 84.3 84.5 MCH 28.8 29.0 MCHC 34.2 34.3 RDW 13.9 13.5 Plt Count 235 254 MPV 8.0 7.9 Neut % (Auto) 73.7 H 86.7 H Lymph % (Auto) 17.0 7.4 L [place] % (Auto) 9.2 H 5.8 Eos % (Auto) 0.0 0.0 Baso % (Auto) 0.1 0.1 Neut # (Auto) 5.4 7.5 Lymph # (Auto) 1.2 0.6 L [place] # (Auto) 0.7 0.5 Eos # (Auto) 0.0 0.0 Baso # (Auto) 0.0 0.0 WBC Differential . . Differential Comment Auto diff final Auto diff final Sodium 144 Potassium 3.9 Chloride 110 H Carbon Dioxide 27.5 Anion Gap 7 BUN 14 Creatinine 0.86 Estimated GFR Greater than 89 Random Glucose 86 Calcium 8.2 L <Eduar Schulte - Last Filed: 01/31/18 20:00> Assessment and Plan - Plan 01/31/2018 Crohn's flare Patient states tolerated clear liquid diet well Denies any nausea or vomiting. Reports mild abdominal discomfort I spoke with case resource manager today who stated she was able to arrange that patient be involved in drug assistance program to receive Humira. WBC 8.7 hemoglobin 12.1 hematocrit 35.3 Plan -Full liquid diet -Continue IV hydration -Mesalamine -Discontinue IV Solu-Medrol/prednisone 40 mg p.o. daily-taper 10 mg weekly -Analgesia as per attending -Spoke with case resource manager in regards to her drug assistance program for Humira -Supportive care -Further recommendations to follow This patient has been seen by myself and Dr. Schulte and this note is written on his behalf - Attending Attestation Dr. Schulte <Julianna Joseph - Last Filed: 01/31/18 17:17> - Plan Patient was seen and examined, doing well, trying to get him patient assistant portfolio manager for medication versus clinical trial, we will switch him to oral prednisone and see how he is doing <Eduar Schulte - Last Filed: 01/31/18 20:00>
--- NOTE | 2018-01-31 17:18 | P.PNCS ---
Subjective Interval history: Appreciate GI help. Agree with advancing diet. Meds per GI. Pt looks better. Stooling Objective Result Diagrams: 01/31/18 14:54 01/31/18 06:42 Objective Remarks: Abd: soft,not distended,non tender Assessment and Plan - Plan Crohns Ileitis with resolving PSBO Per GI. Will follow Advance diet. D/C on meds per GI
[2018-01-31 20:45] VITALS: RESP 16
[2018-02-01] MEDS: Sod Chloride 0.9% Inj 1,000 ML IV.CONT SCH ×2 (02:11→06:57)
[2018-02-01 04:34] LABS: Baso % (Auto) 0.1 % (0.0-2.0); Eos % (Auto) 0.3 % (0.0-4.0); Hematocrit 34.6 % (39.0-51.0); Lymph # (Auto) 1.9 th/mm3 (1.0-4.8); Lymph % (Auto) 28.1 % (9.0-44.0); Mean Corpuscular HGB Conc 34.8 % (32.0-36.0); Mean Corpuscular Hemoglobin 29.2 pg (27.0-34.0); Mean Platelet Volume 7.3 fL (7.0-11.0); Mono # (Auto) 0.6 th/mm3 (0.0-0.9); Mono % (Auto) 8.8 % (0.0-8.0); Neut # (Auto) 4.3 th/mm3 (1.8-7.7); Neut % (Auto) 62.7 % (16.0-70.0); Platelet Count 226 th/mm3 (150-450); Red Blood Count 4.12 mil/mm3 (4.50-5.90); Red Cell Distribution Width 13.9 % (11.6-17.2); White Blood Count 6.8 th/mm3 (4.0-11.0)
[2018-02-01 04:53] LABS: Anion Gap 5 meq/L (5-15); Blood Urea Nitrogen 14 mg/dL (7-18); Calcium 8.1 mg/dL (8.5-10.1); Carbon Dioxide 29.4 meq/L (21.0-32.0); Chloride 111 meq/L (98-107); Glomerular Filtration Rate Greater Than 89 mL/min (>89); Glucose,Random 112 mg/dL (74-106); Potassium 3.9 meq/L (3.5-5.1); Sodium 145 meq/L (136-145)
[2018-02-01] MEDS: Mesalamine 250 MG Capsule ER PO SCH ×2 (08:26→13:00)
[2018-02-01] MEDS ORDERED: predniSONE 20 MG Tablet PO SCH (09:00)
--- NOTE | 2018-02-01 09:56 | P.PNFP ---
Subjective Interval history: Seen and examined at bedside this morning. He is ready to go home. He tolerated his full liquid diet yesterday for lunch and dinner. He reports a good appetite. Reports no abdominal pain. He had a bowel movement yesterday afternoon at 4 PM. It was nonbloody, not black or tarry. He denies chest pain, shortness of breath, nausea, diarrhea. I discussed the next steps with case management. [facility] He will just need to follow-up with the GI doctor as an outpatient. The hospital may be able to cover the patient prescription for 30 days so that he may be discharged. He is stable on his p.o. prednisone currently so this is not a obstacle for discharge. He will be following up with [facility] as an outpatient as well. I also talked to the GI nurse practitioner. I discussed with her the plan to advance the patient's diet to soft solids and to discontinue his IV fluids. We will see how the patient tolerates this and possibly discharge him this afternoon. She agreed with this plan. <Susy Dee - 02/01/18 11:01> Results - Labs Result diagrams: 02/01/18 04:08 02/01/18 04:08 <Dorian Lambert - 02/01/18 14:19> Abnormal lab results 01/31/18 02/01/18 02/01/18 Range/Units 14:54 04:08 04:08 RBC 4.18 L 4.12 L (4.50-5.90) mil/mm3 Hgb 12.1 L 12.0 L (13.0-17.0) gm/dL Hct 35.3 L 34.6 L (39.0-51.0) % Neut % (Auto) 86.7 H (16.0-70.0) % Lymph % (Auto) 7.4 L (9.0-44.0) % [place] % (Auto) 8.8 H (0.0-8.0) % Lymph # (Auto) 0.6 L (1.0-4.8) th/mm3 Chloride 111 H (98-107) meq/L Random Glucose 112 H (74-106) mg/dL Calcium 8.1 L (8.5-10.1) mg/dL Short CBC 01/31/18 02/01/18 Range/Units 14:54 04:08 WBC 8.7 6.8 (4.0-11.0) th/mm3 Hgb 12.1 L 12.0 L (13.0-17.0) gm/dL Hct 35.3 L 34.6 L (39.0-51.0) % Plt Count 254 226 (150-450) th/mm3 [facility] 02/01/18 04:08 Sodium 145 Potassium 3.9 Chloride 111 H Carbon Dioxide 29.4 BUN 14 Creatinine 1.05 Calcium 8.1 L <Dorian Lambert - 02/01/18 14:19> Abnormal lab results 01/31/18 02/01/18 02/01/18 Range/Units 14:54 04:08 04:08 RBC 4.18 L 4.12 L (4.50-5.90) mil/mm3 Hgb 12.1 L 12.0 L (13.0-17.0) gm/dL Hct 35.3 L 34.6 L (39.0-51.0) % Neut % (Auto) 86.7 H (16.0-70.0) % Lymph % (Auto) 7.4 L (9.0-44.0) % [place] % (Auto) 8.8 H (0.0-8.0) % Lymph # (Auto) 0.6 L (1.0-4.8) th/mm3 Chloride 111 H (98-107) meq/L Random Glucose 112 H (74-106) mg/dL Calcium 8.1 L (8.5-10.1) mg/dL Short CBC 01/31/18 02/01/18 Range/Units 14:54 04:08 WBC 8.7 6.8 (4.0-11.0) th/mm3 Hgb 12.1 L 12.0 L (13.0-17.0) gm/dL Hct 35.3 L 34.6 L (39.0-51.0) % Plt Count 254 226 (150-450) th/mm3 [facility] 02/01/18 04:08 Sodium 145 Potassium 3.9 Chloride 111 H Carbon Dioxide 29.4 BUN 14 Creatinine 1.05 Calcium 8.1 L <Susy Dee - 02/01/18 09:56> Physical Exam Vital signs: Vital Signs 01/31/18 16:00 01/31/18 20:00 02/01/18 00:00 Temperature 97.4 F L 97.7 F 97.4 F L Pulse Rate 55 L 67 45 L Respiratory Rate 20 16 16 Blood Pressure 121/67 109/62 112/63 Pulse Oximetry 98 97 98 02/01/18 07:49 02/01/18 12:00 Temperature 97.5 F L 97.8 F Pulse Rate 59 L 63 Respiratory Rate 16 16 Blood Pressure 118/65 119/82 Pulse Oximetry 97 100 Intake & Output 01/31/18 02/01/18 02/01/18 18:59 06:59 18:59 Intake Total 2098 1000 / 1000 Balance 2098 1000 / 1000 Weight 79.9 kg Intake: IV 1618 1000 / 1000 NS Inj 1,000 ML @ 120 mls/hr IV 1618 1000 / 1000 .CONT .Q8H20M [facility] Rx#:[id number] Oral 480 / 480 Other: # Voids 2 Date of Last Bowel Movement 01/31/18 01/31/18 <Dorian Lambert 02/01/18 14:19> Vital Signs 01/31/18 12:00 01/31/18 16:00 01/31/18 20:00 Temperature 97.4 F L 97.4 F L 97.7 F Pulse Rate 55 L 55 L 67 Respiratory Rate 20 20 16 Blood Pressure 121/67 121/67 109/62 Pulse Oximetry 98 98 97 02/01/18 00:00 02/01/18 07:49 Temperature 97.4 F L 97.5 F L Pulse Rate 45 L 59 L Respiratory Rate 16 16 Blood Pressure 112/63 118/65 Pulse Oximetry 98 97 Intake & Output 01/31/18 02/01/18 02/01/18 18:59 06:59 18:59 Intake Total 2098 1000 / 1000 Balance 2098 1000 / 1000 Weight 79.9 kg Intake: IV 1618 1000 / 1000 NS Inj 1,000 ML @ 120 mls/hr IV 1611618 1000 / 1000 .CONT .Q8H20M [facility] Rx#:[id number] Oral 480 / 480 Other: # Voids 2 Date of Last Bowel Movement 01/31/18 01/31/18 <Susy Dee - 02/01/18 09:56> Narrative: GENERAL: laying in bed, very pleasant SKIN: Warm and dry. HEAD: Normocephalic. Atraumatic. EYES: No scleral icterus. No injection or drainage. EOMI. NECK: Supple, trachea midline. No JVD or lymphadenopathy. CARDIOVASCULAR: Regular rate and rhythm without murmurs, gallops, or rubs. RESPIRATORY: Breath sounds equal bilaterally. No accessory muscle use. GASTROINTESTINAL: Abdomen soft, nontender, nondistended, no guarding or rebound tenderness. There is a uniform band about 1 cm in width that extends transversely across the abdomen just below the umbilicus. No guarding or rebound. MUSCULOSKELETAL: No cyanosis, or edema. BACK: Nontender without obvious deformity. <Susy Dee - 02/01/18 11:01> Assessment and Plan - Assessment (1) Partial small bowel obstruction Code(s): K56.600 - Partial intestinal obstruction, unspecified as to cause Status: Acute (2) Acute Crohn's disease Code(s): K50.90 - Crohn's disease, unspecified, without complications Status: Acute (3) Abdominal pain Code(s): R10.9 - Unspecified abdominal pain Status: Acute (4) Nutrition, metabolism, and development symptoms Code(s): R63.8 - Other symptoms and signs concerning food and fluid intake Status: Acute <Dorian Lambert Rafia - 02/01/18 14:19> (1) Partial small bowel obstruction Code(s): K56.600 - Partial intestinal obstruction, unspecified as to cause Status: Acute (2) Acute Crohn's disease Code(s): K50.90 - Crohn's disease, unspecified, without complications Status: Acute (3) Abdominal pain Code(s): R10.9 - Unspecified abdominal pain Status: Acute (4) Nutrition, metabolism, and development symptoms Code(s): R63.8 - Other symptoms and signs concerning food and fluid intake Status: Acute <Susy Dee - 02/01/18 11:01> - Assessment and Plan 32-year-old male with prior medical history of Crohn's disease status post partial bowel colectomy and re-anastomosis who presented with a partial bowel obstruction at the site of the surgery and Crohn's flare including cutaneous manifestations. Patient has not taken medication for his Crohn's disease since March. Pt was previously on Remicade. Partial bowel obstruction -Colorectal surgery consulted, patient known to Dr Espinoza, appreciate recommendations -Abdominal pain is RESOLVED since admission, several normal BM since admission. Last BM yesterday 4PM -Advance diet as tolerated, soft regular diet -Discontinue NS at 120 cc/hr -Pain scale with hydrocodone PRN Crohn's flare -GI consulted, appreciate recs -Continue Prednisone 40 mg and taper by 10 mg weekly -Continue Mesalamine 1000mg po qid per GI -Continue Bentyl 20 mg TID PRN for abdominal pain per GI Fluids: PO intake Electrolytes: continue to monitor Nutrition: soft regular diet DVT ppx: b/l SCDs Dispo: Anticipate discharge home today as long as the patient tolerates his diet advancement <Susy Dee - 02/01/18 11:01> - Attending Attestation The exam, history, and the medical decision-making described in the above note were completed with the assistance of the resident physician. I reviewed and agree with the findings presented. I attest that I had a [id number] encounter with the patient on the same day, and personally performed and documented my assessment and findings in the medical record. doing well today, he has tolerated his "full liquid" diet every well. he has no pain. even the rash on his hands is improving. He only required one PO pain pill overnight and it wasnt even for his abdomen, he used it for back pain. He is not tender to palpation today. As he is fully transitioned to PO meds with a steroid taper plan, if he tolerates a full diet today he could be discharged home on pentasa and prednisone. He can start humira whenever he is approved during his taper with appropriate GI follow up. Appreciate surgery and GI recommendations through this hospital stay. <Dorian Lambert - 02/01/18 14:19>
[2018-02-01 12:42] VITALS: BP 119/82; PULSE 63; TEMP 97.8; O2SAT 100
--- NOTE | 2018-02-01 14:06 | P.DS ---
Date of admission: 01/29/18 11:42 Primary care physician: No Primary Care Physician Brief History from admission: Mr العلي is a 32 yo with history of Crohn's disease s/p partial bowel resection who presents with abdominal pain for the past 3 days. The pain started Sunday. He started vomiting. It was just liquid with non-bloody emesis. He has been dizzy. Last bowel movement was 11PM last night and has been intermittently constipated for the past few days. He usually has 4 BMs per day. He does not have a primary care doctor. He used to follow with [facility]. He has had a reduced appetite. He had a subjective fever on Sunday and Sunday with chills and night sweats. No blood in stool. The stool was dark green , but not black. His stool has been more "grainy" recently. His abdomen is sore to touch. The pain radiates to his back. No hematuria, dysuria, chest pain, SOB , leg pains. PMH: Crohn's disease PSH: Partial bowel resection Medications: None currently, but was on prednisone. He quit taking it in March 2017. Allergies: None Family Hx: mother: healthy father: healthy uncle: sickle cell Social: tobacco: none alcohol: none drugs: none Lives in [place] with and 8 children DS: Diagnosis - Discharge Diagnosis (1) Partial small bowel obstruction Status: Acute (2) Acute Crohn's disease Status: Acute (3) Abdominal pain Status: Acute (4) Nutrition, metabolism, and development symptoms Status: Acute DS: Medications - Discharge Medications Prescriptions: dicyclomine 20 mg PO TID PRN 30 Days #90 tab PRN Reason: Abdominal Pain mesalamine [Pentasa] 1,000 mg PO QID 30 Days #120 cap prednisone See Taper PO DAILY #66 tab DS: Summary Hospital Course: Patient was found to have a small bowel obstruction around the anastomosis of his previous colectomy. Colorectal surgery and GI were consulted. It was decided that the patient would be treated with medical management. He was started on mesalamine 1000 mg p.o. 4 times daily, Solu-Medrol 40 mg IV every 12 hours. As his pain improved, he was transitioned to prednisone 40 mg p.o. and was instructed to complete a steroid taper upon discharge. He was n.p.o. for 2 days and then transitioned to a full liquid diet which he tolerated well. On the day of discharge he had tolerated a soft regular diet and was instructed to advance his diet slowly. Case management also helped the patient complete the paperwork for the patient assistance program with [facility]. He will be following up with GI as an outpatient to complete this process. He will also be following up with primary care provider at [facility]. He was instructed to continue his medications as prescribed and educated on Crohn's disease and it's chronicity. - Time Spent with Patient Total time spent providing and/or coordinating discharge services: Greater than 30 minutes - Quality: VTE Deep Vein Thrombosis/Pulmonary Embolism Present on Admission: No Exam Vital signs: Vital Signs 01/31/18 16:00 01/31/18 20:00 02/01/18 00:00 Temperature 97.4 F L 97.7 F 97.4 F L Pulse Rate 55 L 67 45 L Respiratory Rate 20 16 16 Blood Pressure 121/67 109/62 112/63 Pulse Oximetry 98 97 98 02/01/18 07:49 02/01/18 12:00 Temperature 97.5 F L 97.8 F Pulse Rate 59 L 63 Respiratory Rate 16 16 Blood Pressure 118/65 119/82 Pulse Oximetry 97 100 Intake & Output 01/31/18 02/01/18 02/01/18 18:59 06:59 18:59 Intake Total 2098 / 2098 1000 / 1000 Balance 2098 / 2098 1000 / 1000 Weight 79.9 kg Intake: IV 1619 / 1619 1000 / 1000 NS Inj 1,000 ML @ 120 mls/hr IV 1619 / 1619 1000 / 1000 .CONT .Q8H20M [facility] Rx#:[id number] Oral 480 / 480 Other: # Voids 2 Date of Last Bowel Movement 01/31/18 01/31/18 Results Procedures completed during hospitalization: none Labs on day of discharge: Labs from last 24 hours 02/01/18 02/01/18 01/31/18 04:08 04:08 14:54 WBC 6.8 8.7 RBC 4.12 L 4.18 L Hgb 12.0 L 12.1 L Hct 34.6 L 35.3 L MCV 84.0 84.5 MCH 29.2 29.0 MCHC 34.8 34.3 RDW 13.9 13.5 Plt Count 226 254 MPV 7.3 7.9 Neut % (Auto) 62.7 86.7 H Lymph % (Auto) 28.1 7.4 L [place] % (Auto) 8.8 H 5.8 Eos % (Auto) 0.3 0.0 Baso % (Auto) 0.1 0.1 Neut # (Auto) 4.3 7.5 Lymph # (Auto) 1.9 0.6 L [place] # (Auto) 0.6 0.5 Eos # (Auto) 0.0 0.0 Baso # (Auto) 0.0 0.0 WBC Differential . . Differential Comment Auto diff final Auto diff final Sodium 145 Potassium 3.9 Chloride 111 H Carbon Dioxide 29.4 Anion Gap 5 BUN 14 Creatinine 1.05 Estimated GFR Greater than 89 Random Glucose 112 H Calcium 8.1 L - Impressions ITS Impressions Abdomen/Pelvis CT 01/29/18 09:08 CONCLUSION: 1. Patient is post resection of the terminal ileum and cecum. There is intense inflammatory change and bowel thickening involving the anastomosis suggesting active inflammatory bowel disease. The small bowel proximal to this is dilated and fluid-filled indicating some degree of partial small bowel obstruction. No free air is seen. No abscess is evident. 2. There are scattered, mildly enlarged nodes within the mesentery. These are similar to previous of 04/10/2017. Discharge Plan - Discharge Disposition Patient Disposition: 01 Discharge Home - Discharge Condition Condition: Stable - Discharge Order Discharge Orders: Discharge Order (Routine); Ordered 02/01/18 Ordered By: Susy Dee - Physicians Team Primary Care Provider: Primary Care Physici,No Attending Provider: Dorian Lambert Other Providers: Rolan Espinoza MD ; Eduar Schulte MD
--- NOTE | 2018-02-01 19:01 | P.PNGI ---
Subjective Interval history: Patient ambulating in treatment room No complaints of nausea vomiting or abdominal pain Patient preparing for discharge Physical Exam Vital signs: Vital Signs 01/31/18 20:00 02/01/18 00:00 02/01/18 07:49 Temperature 97.7 F 97.4 F L 97.5 F L Pulse Rate 67 45 L 59 L Respiratory Rate 16 16 16 Blood Pressure 109/62 112/63 118/65 Pulse Oximetry 97 98 97 02/01/18 12:00 Temperature 97.8 F Pulse Rate 63 Respiratory Rate 16 Blood Pressure 119/82 Pulse Oximetry 100 Intake & Output 01/31/18 02/01/18 02/01/18 18:59 06:59 18:59 Intake Total 2098 / 2098 1000 / 1000 Balance 2098 / 2098 1000 / 1000 Weight 79.9 kg Intake: IV 1619 / 1619 1000 / 1000 NS Inj 1,000 ML @ 120 mls/hr IV 1619 / 1619 1000 / 1000 .CONT .Q8H20M [facility] Rx#:[id number] Oral 480 / 480 Other: # Voids 2 Date of Last Bowel Movement 01/31/18 01/31/18 - Constitutional no acute distress - Routine HEENT Exam Head: Present: normocephalic - Routine Respiratory Exam Absent: accessory muscle use - Routine Neurological Exam Present: alert, oriented X3 - Routine Psychiatric Exam Present: normal affect, cooperative Results - Labs CBC & Chem 7: 02/01/18 04:08 02/01/18 04:08 Laboratory Results - last 24 hr 02/01/18 02/01/18 04:08 04:08 WBC 6.8 RBC 4.12 L Hgb 12.0 L Hct 34.6 L MCV 84.0 MCH 29.2 MCHC 34.8 RDW 13.9 Plt Count 226 MPV 7.3 Neut % (Auto) 62.7 Lymph % (Auto) 28.1 [place] % (Auto) 8.8 H Eos % (Auto) 0.3 Baso % (Auto) 0.1 Neut # (Auto) 4.3 Lymph # (Auto) 1.9 [place] # (Auto) 0.6 Eos # (Auto) 0.0 Baso # (Auto) 0.0 WBC Differential . Differential Comment Auto diff final Sodium 145 Potassium 3.9 Chloride 111 H Carbon Dioxide 29.4 Anion Gap 5 BUN 14 Creatinine 1.05 Estimated GFR Greater than 89 Random Glucose 112 H Calcium 8.1 L Assessment and Plan (1) Acute Crohn's disease Status: Acute Code(s): K50.90 - Crohn's disease, unspecified, without complications - Plan 02/01/2018 Crohn's disease Patient stable for discharge Patient advised to keep appointment with GI next week Patient advised that his demographic information has been given to research coordinator at [facility] and he will be contacted Plan Diet as tolerated Take medications as prescribed Steroids Anti-inflammatory Follow-up with GI This patient has been seen by myself and Dr. Schulte and this note is written on his behalf - Attending Attestation Dr. Schulte
== END 2018-02-01 16:48 | disposition home or self-care (01) | DRG 387 ==
LOC: NEPC 08:40 → NEDA 11:42 → N07 12:55
PROVIDERS: ADMIT Family Medicine; ATTEND Family Medicine
CPT/HCPCS: 74177; 80048; 80053; 81001; 83690; 83735; 85025; 90761; 90774; 90775; 90776; 90784; 96361; 96374; 96375; 96376; 99285; C8952; J2270; J2405; J2920; J7030; J7506; J7512; Q9967